=== PATIENT | male | born 1995 | race Caucasian/White ===

== ENCOUNTER 2022-02-17 21:42 | Inpatient (IN) | payer MEDICAID, SELFPAY ==
[2022-02-17 21:56] VITALS: BP 129/85; PULSE 71; RESP 14; TEMP 36.6; O2SAT 99; BMI 23.4
--- NOTE | 2022-02-17 22:25 | PC.NURSE ---
Pt. denies Suicidal or Homicidal ideation. Pt. states that he just wants help with a drinking problem. Pt. was asked by Triage nurse and doctor and clearly denies any suicidal ideation or homicidal ideation.
--- NOTE | 2022-02-17 22:30 | W.ED.GENADLT ---
HPI - General Adult General: Chief complaint: Psychiatric Symptoms Stated complaint: MHE Time Seen by Provider: 02/17/22 21:49 History of Present Illness: HPI: [26]yo patient w/ hx of alcohol dependence requesting alcohol detox. Patient tells me that he wants to quit alcohol. On arrival, the patient is AAOx3 and cooperative with my evaluation. No focal complaints of chest pain, shortness of breath, palpitations, N/V, focal GI/ complaints. Currently denies SI/HI. No complaints of hallucinations. However, per family, patient expressed daily suicidal ideation that has acutely worsened today. Family tells me that patient has access to firearms, is thinking about jumping from cars or hang himself today. Family acutely intervened and told him to come to the emergency room. On further questioning, patient denies all of the above. Onset: acute Duration: ongoing Location: home Severity: severe Associated symptoms: Deny chest pain, dyspnea, nausea, rash, palpitations or vomiting Review of Systems Const: Denies: fever(s) or chills Eyes: Denies: change in vision ENMT: Denies: mouth pain Card: Denies: chest pain or palpitations Resp: Denies: dyspnea or non-productive cough GI: Denies: abdominal pain, nausea, vomiting or diarrhea : Denies: dysuria Musc: Denies: extremity pain Skin/Breast: Denies: rash or new lesions Neuro: Denies: weakness in extremities Psych: Reports: other (Normal mood) Tobias/Lymph: Denies: easy bruising [facility] ED PFSH: Medical History (Updated 02/18/22 @ 11:14 by Donato Clancy MD) Alcohol dependence Social History (Updated 02/17/22 @ 22:31 by Mara De León MD) Smoking and tobacco status: never smoked Alcohol intake: current Substance/Drug Use: never Physical Exam Const: COMMON NORMALS: alert HENMT: COMMON NORMALS: atraumatic HEAD & SCALP: atraumatic MOUTH: moist mucous membranes not abnormal Eye: COMMON NORMALS: EOMs intact bilaterally and conjunctivae normal CONJUNCTIVA: Yes conjunctivae normal Neck/C-Spine: COMMON NORMALS: full ROM and supple Resp: COMMON NORMALS: normal respiratory effort and clear to auscultation bilaterally AUSCULTATION: clear to auscultation bilaterally Cardio: COMMON NORMALS: regular rate RATE: regular rate GI: COMMON NORMALS: Soft to palpation and non-tender PALPATION: Yes Soft to palpation Extremity: COMMON NORMALS: full ROM Neuro: SENSORIUM/ORIENTATION: Yes alert MOTOR EXAM: No Abnormal motor strength present and Other motor observations present (no focal motor deficits) Psych: COMMON NORMALS: speech normal SPEECH: Yes normal speech MOOD & AFFECT: Yes euthymic mood Course Vital Signs: Vital signs: Vital Signs Temperature 99.2 F 02/18/22 14:00 Pulse Rate 89 02/18/22 14:00 Respiratory Rate 17 02/18/22 14:00 Blood Pressure 156/78 02/18/22 14:00 Pulse Oximetry 98 02/18/22 14:00 MDM - General Adult Medical Decision Making [26]yo patient w/ hx of alcohol dependence presenting for requesting detox. Per family, patient has expressed multiple desire to hurt himself including hanging, jumping from traffic or shooting himself. HDS, exam within normal limit Thoughts are linear and organized, and the patient has no AH/VH, HI. Patient's placed under involuntary commitment after patient family filled out multiple involuntary commitment affadvitis. Clinically the patient displays no overt toxidrome; they are well appearing, with low suspicion for toxic ingestion given history and exam. Symptoms unlikely 2/2 anemia, hypothyroidism, infection, or ICH. [11:20pm] On reassessment, patient is hemodynamically stable with no acute medical complaints. Case discussed with psychiatric provider Dr. Clancy at [facility] with recommendation for admission Disposition: admission Lab Data : 02/17/22 22:55 02/17/22 22:55 Laboratory Results WBC 6.7 10^3/uL (4.0-10.0) 02/17/22 22:55 RBC 4.68 10^6/uL (4.1-5.3) 02/17/22 22:55 Hgb 15.4 g/dL (11.7-16.6) 02/17/22 22:55 Hct 45.3 % (42.0-52.0) 02/17/22 22:55 MCV 96.8 fl (80-94) H 02/17/22 22:55 MCH 32.9 pg (28.0-34.0) 02/17/22 22:55 MCHC 34.0 g/dL (30.0-36.0) 02/17/22 22:55 RDW 13.5 % (12.1-15.1) 02/17/22 22:55 Plt Count 318 10^3/cmm (130-400) 02/17/22 22:55 MPV 8.6 fL (7.4-10.4) 02/17/22 22:55 Neut % (Auto) 49.0 % 02/17/22 22: Lymph % (Auto) 36.3 % 02/17/22 22:55 [place] % (Auto) 10.0 % 02/17/22 22:55 Eos % (Auto) 3.1 % 02/17/22: Baso % (Auto) 1.2 % 02/17/22: Neut # (Auto) 3.27 10^3/uL (1.8-7.7) 02/17/22 22: Lymph # (Auto) 2.4 10^3/uL (0.8-4.8) 02/17/22: [place] # (Auto) 0.7 10^3/uL (0.2-0.9) 02/17/22 22:55 Eos # (Auto) 0.2 10^3/uL (0.0-0.8) 02/17/22: Baso # (Auto) 0.1 10^3/uL (0.0-0.1) 02/17/22: Nucleated RBC % (auto) 0 % 02/17/22: Nucleated RBCs # 0.0 /100WBC 02/17/22 22: Sodium 142 mmol/L (136-145) 02/17/22 22:55 Potassium 3.8 mmol/L (3.5-5.1) 02/17/22: Chloride 101 mmol/L (98-107) 02/17/22: Carbon Dioxide 26 mmol/L (22-29) 02/17/22 22:55 Anion Gap 18.8 (5-19) 02/17/22 22:55 BUN 6 mg/dL (6-20) 02/17/22: Creatinine 0.7 mg/dL (0.7-1.2) 02/17/22 22:55 GFR Calculation 137.4 mL/min (90-130) H 02/17/22 22:55 Glucose 79 mg/dL (65-115) 02/17/22 22:55 Calculated Osmolality 291 mOsm/kg (285-295) 02/17/22 22:55 Calcium 8.6 mg/dL (8.5-10.5) 02/17/22 22:55 Total Bilirubin 0.5 mg/dL (0.15-1.2) 02/17/22 22:55 AST 54 U/L (0-40) H 02/17/22 22:55 ALT 49 U/L (0-41) H 02/17/22 22:55 Alkaline Phosphatase 147 IU/L (40-130) H 02/17/22 22:55 Total Protein 7.9 g/dL (6.6-8.7) 02/17/22 22:55 Albumin 5.2 g/dL (3.5-5.2) 02/17/22 22:55 Globulin 2.7 g/dL (1.3-4.6) 02/17/22 22:55 Salicylates < 0.3 mg/dL (3-10) L 02/17/22 22:55 Acetaminophen < 5.0 ug/mL (10-30) L 02/17/22 22:55 Ethyl Alcohol 341 mg/dL (0-10) H* 02/17/22 22:55 Discharge Plan Discharge Patient Disposition: Home Clinical Impression: Alcohol dependence Condition: Stable Discharge Diet: Advance as tolerated Discharge Activity: Increase activity as tolerated Coding Level of Care Code ED Day Ha[employer] Charter Bus Driver for Charis Fwd Exam Comprehensive
--- NOTE | 2022-02-17 23:04 | PC.NURSE ---
Patient was asked again by myself if the patient is suicidal. Patient denies all SI, HI, and hallucinations.
[2022-02-17 23:08] LABS: Basophils # 0.1 10^3/uL (0.0-0.1); Basophils % 1.2 %; Eosinophils # 0.2 10^3/uL (0.0-0.8); Eosinophils % 3.1 %; Hematocrit 45.3 % (42.0-52.0); Hemoglobin 15.4 g/dL (11.7-16.6); Lymphocytes # 2.4 10^3/uL (0.8-4.8); Lymphocytes % 36.3 %; Mean Corpuscular Hemoglobin 32.9 pg (28.0-34.0); Mean Corpuscular Volume 96.8 fl (80-94); Mean Platelet Volume 8.6 fL (7.4-10.4); Monocytes # 0.7 10^3/uL (0.2-0.9); Neutrophils # 3.27 10^3/uL (1.8-7.7); Nucleated Red Blood Cells % 0 %; Platelet Count 318 10^3/cmm (130-400); Red Blood Count 4.68 10^6/uL (4.1-5.3); Red Cell Distribution Width 13.5 % (12.1-15.1); White Blood Count 6.7 10^3/uL (4.0-10.0)
[2022-02-17 23:28] LABS: Alanine Aminotransferase 49 U/L (0-41); Albumin Level 5.2 g/dL (3.5-5.2); Alkaline Phosphatase 147 IU/L (40-130); Anion Gap 18.8 (5-19); Aspartate Amino Transferase 54 U/L (0-40); Blood Urea Nitrogen 6 mg/dL (6-20); Calcium 8.6 mg/dL (8.5-10.5); Carbon Dioxide 26 mmol/L (22-29); Chloride 101 mmol/L (98-107); Globulin 2.7 g/dL (1.3-4.6); Glomerular Filtration Rate 137.4 mL/min (90-130); Glucose 79 mg/dL (65-115); Osmolality Calculated 291 mOsm/kg (285-295); Potassium 3.8 mmol/L (3.5-5.1); Sodium 142 mmol/L (136-145); Total Bilirubin 0.5 mg/dL (0.15-1.2); Total Protein 7.9 g/dL (6.6-8.7)
[2022-02-17 23:29] LABS: Acetaminophen < 5.0 ug/mL (10-30); Salicylate < 0.3 mg/dL (3-10)
[2022-02-17 23:34] LABS: Add Urine Microscopic? NO; Charge for UA Resulting for Rev
[2022-02-17 23:39] VITALS: RESP 16
[2022-02-17 23:41] LABS: Bilirubin Urine Neg (Negative); Blood Urine Neg (Negative); Glucose Urine UA Norm (Normal); Ketones Urine 1+ (Negative); Leukocyte Esterase Urine Negative (Negative); Nitrate Urine Negative (Negative); Protein Urine Neg (Negative); Urine Appearance Clear (CLEAR); Urine Color Yellow (Yellow); Urobilinogen Urine Norm (Negative); pH Urine 5 (5-7)
[2022-02-17 23:52] VITALS: BP 143/88; PULSE 82; RESP 18; TEMP 36.4; O2SAT 97
[2022-02-18] MEDS: nicotine 2 mg Gum BUCCAL ×6 (00:03→16:42)
[2022-02-18 00:38] LABS: Amphetamines Screen Urine Negative (Negative); Barbiturates Screen Urine Negative (Negative); Benzodiazepines Screen Urine Negative (Negative); Cocaine Screen Urine Negative (Negative); Opiate Screen Urine Negative (Negative); PCP Screen Urine Negative (Negative); THC Screen Urine Positive (Negative)
--- NOTE | 2022-02-18 00:42 | PC.ADMIT ---
Admission Note:PI: [26]yo patient w/ hx of alcohol dependence requesting alcohol detox. Patient tells me that he wants to quit alcohol. On arrival, the patient is AAOx3 and cooperative with my evaluation. No focal complaints of chest pain, shortness of breath, palpitations, N/V, focal GI/ complaints. Currently denies SI/HI. No complaints of hallucinations. However, per family, patient expressed daily suicidal ideation that has acutely worsened today. Family tells me that patient has access to firearms, is thinking about jumping from cars or hang himself today. Family acutely intervened and told him to come to the emergency room. On further questioning, patient denies all of the above. Patient came to the ED intoxicated. He was going to be discharged home until his family got involved and said that he endorsed SI. Patient reports he has had suicidal thoughts at times but they never prove to be anything. He has been drinking since he was 20. His father is/was an alcoholic. He states he drinks 4 shots daily now. He holds a job. He has lost 20-25 lbs without trying. He says he is just not hungry. He has seizures. He had a workup and he states they could not determine what was causing them. He ran out of his seizure medicine and doesn't remember what he was taking. His last seizure was 2 weeks ago but he did not go to the hospital even with EMS encouragement. He lives with his uncle Garfield who is his support system. Says that he has ADHD/ADD. He sleeps well at night. He doesn't have detox symptoms that he knows of. The longest he has been sober is a month. The patient,Eleuterio You,26 y/o, was given written information regarding hospital policies, unit procedures and contact persons. Patient's smoking status: never smoked. Vital Signs - 8 hr 02/17/22 21:56 02/17/22 23:39 Temperature 97.8 F Pulse Rate 71 Respiratory Rate 14 16 Blood Pressure 129/85 Pulse Oximetry 99
[2022-02-18 01:00] LABS: Alcohol Level 341 mg/dL (0-10)
[2022-02-18 06:00] VITALS: BP 121/56; PULSE 110; RESP 17; TEMP 36.6; O2SAT 98
[2022-02-18] MEDS: thiamine 100 mg Tablet PO (08:51)
[2022-02-18] MEDS: multivitamin therapeutic Tablet 1 TAB PO (08:51)
[2022-02-18] MEDS: folic acid 1 mg Tablet PO (08:51)
--- NOTE | 2022-02-18 11:05 | P.NPUHP_ITS ---
Providers/Chief Complaint Admitting Physician: Donato Clancy MD Primary Care Provider: Vignesh Ybarra Chief Complaint: MHE HPI NPU History of Present Illness Eleuterio You is a 26 year old male who came into our emergency department with the following report: HPI: [26]yo patient w/ hx of alcohol dependence requesting alcohol detox.? Patient tells me that he wants to quit alcohol.? On arrival, the patient is AAOx3 and cooperative with my evaluation. No focal complaints of chest pain, shortness of breath, palpitations, N/V, focal GI/ complaints. Currently denies SI/HI. No complaints of hallucinations.? However, per family, patient expressed daily suicidal ideation that has acutely worsened today.? Family tells me that patient has access to firearms, is thinking about jumping from cars or hang himself today.? Family acutely intervened and told him to come to the emergency room.? On further questioning, patient denies all of the above. There are 3 affidavits filled out by family members saying that he is a danger to himself. He said that he has threatened to kill himself with a gun or jump in front of cars in traffic. One said that police had been called to prevent him from jumping out into traffic to try to kill himself. He was admitted to the neuropsychiatry unit on a 96-hour hold for definitive treatment of these issues. He says that none of these things in the affidavits happened in the last couple weeks. He said it has been at least 1 month since he has had any suicidal ideation. He says that he has had suicidal thoughts on and off for the last 3 years since his father . His father was an alcoholic and from a heart attack. The patient has been drinking 4-6 shots of whiskey a day since that time. His best friend was shot in front of him in 2017. He denies having nightmares about that. He came to the emergency department saying that he wanted treatment for his alcoholism. He wanted in a treatment program. However now he says that he does not want to go anywhere where he would be in residential treatment. He wants outpatient treatment. He does not have much money and could not afford to pay much. He does not have insurance. He does not believe that he is depressed or anxious. 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 He says that he enjoys it. His energy level and motivation are good. He says that his sleep, appetite and self-esteem are all good. He did have some guilt for not being a good enough son after his father but does not feel that that is present at this time. He does not think that he worries too much about things. His concentration is good. He is not obsessive compulsive about things. He denies mood changes reminiscent of bipolar disorder. He said that his teenage years were good. He played sports and his self-esteem was good. He graduated from high school. PAST PSYCHIATRIC HISTORY As above SOCIAL HISTORY As above Meds NPU Home Medications Medication Instructions Recorded Confirmed Last Taken Type No Known Home Medications 02/18/22 02/18/22 Unknown History Allergies Allergy/AdvReac Type Severity Reaction Status Date / Time No Known Allergies Allergy Verified 02/17/22 21:56 PFS NPU PFSH: Medical History (Updated 02/18/22 @ 11:14 by Donato Clancy MD) Alcohol dependence Social History (Updated 02/17/22 @ 22:31 by Mara De León MD) Smoking and tobacco status: never smoked Alcohol intake: current Substance/Drug Use: never Mental Status Exam MSE Comments: This is a 26-year-old appropriate weight male who appears approximately his stated age and is in no acute distress. He is pleasant and cooperative with the evaluation. His grooming is fairly good in hospital scrubs. psychomotor activity is normal. Speech is at a regular rate and rhythm, normal volume, good articulation, not pressured. Alert, oriented X3 Attention and concentration appears to be normal. Memory is intact Mood is good. Affect is euthymic. Thought process is logical and goal-directed. Thought content: Denies auditory and visual hallucinations. No delusions or paranoia are noted. No current suicidal ideation, and no homicidal ideation. Fund of knowledge is average. Insight and judgment appear to be fair. Impulse control is fair. Vitals/I&O/Wt Last Vital Signs Temp 97.9 F 02/18/22 06:00 Pulse 110 H 02/18/22 06:00 Resp 17 02/18/22 06:00 BP 121/56 02/18/22 06:00 Pulse Ox 98 02/18/22 06:00 Weight last 48 hrs Weight 69.853 kg Data NPU : 02/17/22 22:55 02/17/22 22:55 A&P Assessment and plan (1) Alcohol dependence: Status: Acute (2) Suicidal ideation: Status: Acute Plan This is a 26-year-old male who drinks 4-6 shots of whiskey per day seeking rehabilitation and has reports of suicidal ideation from his family Plan: 1. We will observe only on as needed medications 2. Continue every 15 minute checks for safety. 3. Encourage individual, group and milieu therapies. 4. Encourage sober living treatment after discharge at the highest level of care to which he is willing to commit. 5. We will monitor for safety for himself in the community prior to discharge. Involuntary Hold Information 96 Hour Hold: 96 Hour Involuntary Admission: Yes 96 Hour Hold Ending Date: 02/21/22 96 Hour Hold Ending Time: 23:30 Attestations NPU Medical Necessity Statement*: Inpatient hospitalization is medically necessary and the clinically appropriate intervention at this time. We will initiate medications and make changes as indicated. He will be in the hospital for over 2 midnights. Likely length of stay 4-6 days Coding Level of Care Code Acute Computer Engineering Technologist for Charis Fatima Diagnoses Alcohol dependence F10.20 Suicidal ideation R45.851
[2022-02-18 14:00] VITALS: BP 156/78; PULSE 89; RESP 17; TEMP 37.3; O2SAT 98
[2022-02-18 22:00] VITALS: BP 130/78; PULSE 93; RESP 16; TEMP 36.7; O2SAT 94
[2022-02-19 05:24] VITALS: BP 138/92; PULSE 76; RESP 17; TEMP 36.8; O2SAT 100
[2022-02-19] MEDS: nicotine 2 mg Gum BUCCAL ×3 (07:16→12:15)
[2022-02-19] MEDS: multivitamin therapeutic Tablet 1 TAB PO (08:49)
[2022-02-19] MEDS: folic acid 1 mg Tablet PO (08:49)
[2022-02-19] MEDS: thiamine 100 mg Tablet PO (08:49)
--- NOTE | 2022-02-19 11:35 | W.PM.NPUDCS ---
Diagnoses at Discharge Discharge Diagnosis (1) Alcohol dependence: Status: Acute (2) Suicidal ideation: Status: Acute Reason for Visit Reason for Visit: MHE Brief History: History of Present Illness Eleuterio You is a 26 year old male who came into our emergency department with the following report: HPI: [26]yo patient w/ hx of alcohol dependence requesting alcohol detox.? Patient tells me that he wants to quit alcohol.? On arrival, the patient is AAOx3 and cooperative with my evaluation. No focal complaints of chest pain, shortness of breath, palpitations, N/V, focal GI/ complaints. Currently denies SI/HI. No complaints of hallucinations.? However, per family, patient expressed daily suicidal ideation that has acutely worsened today.? Family tells me that patient has access to firearms, is thinking about jumping from cars or hang himself today.? Family acutely intervened and told him to come to the emergency room.? On further questioning, patient denies all of the above. There are 3 affidavits filled out by family members saying that he is a danger to himself.? He said that he has threatened to kill himself with a gun or jump in front of cars in traffic.? One said that police had been called to prevent him from jumping out into traffic to try to kill himself. He was admitted to the neuropsychiatry unit on a 96-hour hold for definitive treatment of these issues.? He says that none of these things in the affidavits happened in the last couple weeks.? He said it has been at least 1 month since he has had any suicidal ideation.? He says that he has had suicidal thoughts on and off for the last 3 years since his father .? His father was an alcoholic and from a heart attack.? The patient has been drinking 4-6 shots of whiskey a day since that time.? His best friend was shot in front of him in 2017.? He denies having nightmares about that.? He came to the emergency department saying that he wanted treatment for his alcoholism.? He wanted in a treatment program.? However now he says that he does not want to go anywhere where he would be in residential treatment.? He wants outpatient treatment.? He does not have much money and could not afford to pay much.? He does not have insurance.? He does not believe that he is depressed or anxious.? 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 He says that he enjoys it.? His energy level and motivation are good.? He says that his sleep, appetite and self-esteem are all good.? He did have some guilt for not being a good enough son after his father but does not feel that that is present at this time.? He does not think that he worries too much about things.? His concentration is good.? He is not obsessive compulsive about things.? He denies mood changes reminiscent of bipolar disorder.? He said that his teenage years were good.? He played sports and his self-esteem was good.? He graduated from high school. Hospital Course Hospital Course He slowly acclimated to the individual, group and milieu therapies provided. He was not started on medications. He did not take as needed medications. He was able to contract for safety outside hospital prior to discharge. During the hospitalization, patient had routine laboratory studies which were within normal limits except for few outliers. Additionally there was a general medical evaluation which was also within normal limits and revealed no new acute processes. Discharge Summary: At the time of discharge, lethality was denied. Mood and anxiety were well managed. Patient endorsed a plan to follow-up with the aftercare recommendations of the treatment team. Patient was evaluated and deemed to be absent credible lethality, and had achieved the maximum benefit from an inpatient hospitalization, so was discharged. Involuntary Hold Information 96 Hour Hold: 96 Hour Involuntary Admission: Yes 96 Hour Hold Ending Date: 02/21/22 96 Hour Hold Ending Time: 23:30 Mental Status Exam MSE Comments: This is a 26-year-old appropriate weight male who appears approximately his stated age and is in no acute distress. He is pleasant and cooperative with the evaluation. His grooming is fairly good in hospital scrubs. psychomotor activity is normal. Speech is at a regular rate and rhythm, normal volume, good articulation, not pressured. Alert, oriented X3 Attention and concentration appears to be normal. Memory is intact Mood is good. Affect is euthymic. Thought process is logical and goal-directed. Thought content: Denies auditory and visual hallucinations. No delusions or paranoia are noted. No current suicidal ideation, and no homicidal ideation. Fund of knowledge is average. Insight and judgment appear to be fair. Impulse control is fair. Cognition: Patient Appearance: Appropriate Level of Consciousness: Awake, Alert and Appropriate Patient Cognition Impaired: No Ability to Follow Directions: Excellent Patient Orientation (long list): Person, Place, Time and Year Comprehension Ability: No Impairment Hallucination Type: None Delusion Description: Not Present Thought Process: Appropriate Affect: Affect Description: Appropriate Behavior: Patient Behavior: Appropriate Speech Pattern: Appropriate Discharge Data Studies Completed and Pending: Laboratory Results WBC 6.7 10^3/uL (4.0- 10.0) 02/17/22 22:55 RBC 4.68 10^6/uL (4.1 -5.3) 02/17/22 22:55 Hgb 15.4 g/dL (11.7-1 6.6) 02/17/22 22:55 Hct 45.3 % (42.0-52.0 ) 02/17/22 22:55 MCV 96.8 fl (80-94) H 02/17/22 22:55 MCH 32.9 pg (28.0-34. 0) 02/17/22 22:55 MCHC 34.0 g/dL (30.0-3 6.0) 02/17/22 22:55 RDW 13.5 % (12.1-15.1 ) 02/17/22 22:55 Plt Count 318 10^3/cmm (130 -400) 02/17/22 22:55 MPV 8.6 fL (7.4-10.4) 02/17/22 22:55 Neut % (Auto) 49.0 % 02/17/22 22:55 Lymph % (Auto) 36.3 % 02/17/22 22:55 [place] % (Auto) 10.0 % 02/17/22 22:55 Eos % (Auto) 3.1 % 02/17/22 22:55 Baso % (Auto) 1.2 % 02/17/22 22:55 Neut # (Auto) 3.27 10^3/uL (1.8 -7.7) 02/17/22 22:55 Lymph # (Auto) 2.4 10^3/uL (0.8- 4.8) 02/17/22 22:55 [place] # (Auto) 0.7 10^3/uL (0.2- 0.9) 02/17/22 22:55 Eos # (Auto) 0.2 10^3/uL (0.0- 0.8) 02/17/22 22:55 Baso # (Auto) 0.1 10^3/uL (0.0- 0.1) 02/17/22 22:55 Nucleated RBC % (a uto) 0 % 02/17/22: Nucleated RBCs # 0.0 /100WBC 02/17/22 22:55 Sodium 142 mmol/L (136-1 45) 02/17/22 22:55 Potassium 3.8 mmol/L (3.5-5 .1) 02/17/22 22:55 Chloride 101 mmol/L (98-10 7) 02/17/22 22:55 Carbon Dioxide 26 mmol/L (22-29) 02/17/22 22:55 Anion Gap 18.8 (5-19) 02/17/22 22:55 BUN 6 mg/dL (6-20) 02/17/22 22:55 Creatinine 0.7 mg/dL (0.7-1. 2) 02/17/22 22:55 GFR Calculation 137.4 mL/min (90- 130) H 02/17/22 22:55 Glucose 79 mg/dL (65-115) 02/17/22 22:55 Calculated Osmolal ity 291 mOsm/kg (285- 295) 02/17/22 22:55 Calcium 8.6 mg/dL (8.5-10 .5) 02/17/22 22:55 Total Bilirubin 0.5 mg/dL (0.15-1 .2) 02/17/22 22:55 AST 54 U/L (0-40) H 02/17/22 22:55 ALT 49 U/L (0-41) H 02/17/22 22:55 Alkaline Phosphata se 147 IU/L (40-130) H 02/17/22 22:55 Total Protein 7.9 g/dL (6.6-8.7 ) 02/17/22 22:55 Albumin 5.2 g/dL (3.5-5.2 ) 02/17/22 22:55 Globulin 2.7 g/dL (1.3-4.6 ) 02/17/22 22:55 Urine Color Yellow (Yellow) 02/17/22 23:25 Urine Appearance Clear (CLEAR) 02/17/22 23:25 Urine pH 5 (5-7) 02/17/22 23:25 Ur Specific Gravit y 1.020 (1.005-1.0 30) 02/17/22 23:25 Urine Protein Neg (Negative) 02/17/22 23:25 Urine Glucose (UA) Norm (Normal) 02/17/22 23:25 Urine Ketones 1+ (Negative) H 02/17/22 23:25 Urine Blood Neg (Negative) 02/17/22 23:25 Urine Nitrate Negative (Negati ve) 02/17/22 23:25 Urine Bilirubin Neg (Negative) 02/17/22 23:25 Urine Urobilinogen Norm mg/dL (Negat lina) 02/17/22 23:25 Ur Leukocyte Brenda ase Negative (Negati ve) 02/17/22 23:25 Salicylates < 0.3 mg/dL (3-10 ) L 02/17/22 22:55 Urine Opiates Scre en Negative ng/mL (N egative) 02/17/22 23:25 Acetaminophen < 5.0 ug/mL (10-3 0) L 02/17/22 22:55 Ur Barbiturates Sc reen Negative ng/mL (N egative) 02/17/22 23:25 Ur Phencyclidine S crn Negative ng/mL (N egative) 02/17/22 23:25 Ur Amphetamines Sc reen Negative ng/mL (N egative) 02/17/22 23:25 U Benzodiazepines Scrn Negative ng/mL (N egative) 02/17/22 23:25 Urine Cocaine Scre en Negative ng/mL (N egative) 02/17/22 23:25 U Marijuana (THC) Screen Positive ng/mL (N egative) H 02/17/22 23:25 Ethyl Alcohol 341 mg/dL (0-10) H* 02/17/22 22:55 Vitals: Last Vital Signs Temp 98.3 F 02/19/22 05:24 Pulse 76 02/19/22 05:24 Resp 17 02/19/22 05:24 BP 138/92 02/19/22 05:24 Pulse Ox 100 02/19/22 05:24 Discharge Plan Discharge Patient Disposition: Home Condition: Stable Prescriptions: No Action No Known Home Medications 0RF Discharge Orders: Discharge Order (Routine); Ordered 02/19/22 Ordered By: Donato Clancy Referrals: [facility] [Other] (Mondays at 6pm) [facility] [Other] (Wednesdays at 6pm in room [address]100 of the [facility] [place]) [facility] [Outside] Vignesh Ybarra FNP [Primary Care Provider] - Discharge Diet: Regular Discharge Activity: Resume usual activity Patient Instructions: Alcohol Use Disorder (ED), Opioid Safety Activity Restrictions/Additional Instructions: Go to the behavioral health clinic first thing in the morning for alcohol detoxification per request of Dr. Clancy. Please come back to the emergency room if you need help, have any hallucinations, or you have any depression or have thoughts about hurting yourself or other people. Discharge Attestations NPU Time Spent in Discharge Care*: less than 30 min Specific Discharge Activities: Specific discharge activities: educating patient, discussing with block and case maker/social workers/dc planners, documenting/other paperwork and evaluating patient/reviewing data Coding Level of Care Code Acute Chg FW DC note Diagnoses Alcohol dependence F10.20 Suicidal ideation R45.851
[2022-02-19 12:21] VITALS: BP 138/92; PULSE 76; RESP 17; TEMP 36.8; O2SAT 100
--- NOTE | 2022-02-19 12:34 | PC.NURSE ---
Discharge Teaching Discharge teaching completed. No new medications ordered. Reviewed groups to attend to assist with alcohol dependence. Verbalizes understanding. Reviewed appointment times with [facility] and who to call. States he has a card of who to call in the AM. All questions ordered and support voiced.
--- NOTE | 2022-02-19 13:44 | DCPLANNER ---
energy efficient site manager had message to speak with patient about services at [facility]. energy efficient site manager was unable to speak with patient or leave a voicemail for patient.
== END 2022-02-19 13:26 | disposition home or self-care (01) | DRG 897 ==
LOC: ER 22:44 → NP 23:40
PROVIDERS: Admitting Provider Psychiatry & Neurology Psychiatry; Emergency Provider Emergency Medicine; PCP Nurse Practitioner Family; Visit Provider Psychiatry & Neurology Psychiatry
DX: F10.20 Alcohol dependence, uncomplicated (principal); R45.851 Suicidal ideations; Z63.4 Disappearance and death of family member; Y90.8 Blood alcohol level of 240 mg/100 ml or more
CPT/HCPCS: 80053; 80306; 80307; 81003; 85025; 96372; 97150; 97165; 99285; J3411

== ENCOUNTER → 2022-10-27 12:03 | Outpatient (BNVA) | payer BC, SELFPAY | PROVIDERS: PCP Nurse Practitioner Family; Visit Provider Registered Nurse Neonatal Intensive Care | DX: S62.625A Displaced fracture of middle phalanx of left ring finger, initial encounter for closed fracture (principal); X58.XXXA Exposure to other specified factors, initial encounter | CPT/HCPCS: 73130 ==

== ENCOUNTER → 2022-11-11 13:23 | Outpatient (BNVA) | payer BC, MEDICAID, SELFPAY | PROVIDERS: PCP Nurse Practitioner Family; Referring Provider Registered Nurse Neonatal Intensive Care; Visit Provider Nurse Practitioner Family | DX: S62.655A Nondisplaced fracture of middle phalanx of left ring finger, initial encounter for closed fracture (principal); W22.8XXA Striking against or struck by other objects, initial encounter | CPT/HCPCS: 73130; 99214 ==

== ENCOUNTER 2023-10-07 11:05 | Emergency (ER) | payer SELFPAY ==
[2023-10-07] VITALS (7 sets, daily range): BP systolic 126–141; BP diastolic 80–96; PULSE 66–95; RESP 17–21; TEMP 36.6; O2SAT 94–99; BMI 22.1
--- NOTE | 2023-10-07 11:14 | ECG_ITS ---
[facility] Test Date: 2023-10-07 Pat Name: Eleuterio You Department: Room: Gender: Male Route Cdl Driver: : 1995 Requested By: Maryjane Mejia Order Number: [id number] Lorena MD: Tony Beckwith M.D. Measurements Intervals [place] Rate: 76 P: 71 VT: 130 QRS: 74 QRSD: 106 T: 22 QT: 375 QTc: 422 Interpretive Statements SINUS RHYTHM WITH MARKED SINUS ARRHYTHMIA No previous ECG available for comparison Electronically Signed On 10-07-2023 15:29:23 HEATER ROOM HELPER by Tony Beckwith M.D. [id number]
--- NOTE | 2023-10-07 11:42 | XR_ITS ---
WS: [id number] Portable AP upright chest, 10/07/2023 Clinical Data: palpitations Comparison: Portable chest, 01/28/2014 Findings: No nodules, masses or effusions are seen. The heart is normal. The pulmonary vascularity is not increased. No pneumonia or pneumothorax is seen. Monitor leads are on the chest wall. Impression: Negative chest.
[2023-10-07 12:03] LABS: Basophils # 0.1 10^3/uL (0.0-0.1); Basophils % 0.8 %; Eosinophils % 0.3 %; Hematocrit 41.8 % (37-53); Lymphocytes # 1.4 10^3/uL (0.8-4.8); Lymphocytes % 20.5 %; Mean Corpuscular HGB Conc 34.7 g/dL (30-55); Mean Corpuscular Hemoglobin 33.1 pg (27-33); Mean Corpuscular Volume 95.4 fl (82-101); Mean Platelet Volume 8.4 fL (7.4-10.4); Monocytes # 0.6 10^3/uL (0.2-0.9); Monocytes % 8.5 %; Neutrophils # 4.62 10^3/uL (1.8-7.7); Neutrophils % 69.7 %; Nucleated Red Blood Cells % 0 %; Platelet Count 238 10^3/cmm (157-399); Red Blood Count 4.38 10^6/uL (3.85-5.65); Red Cell Distribution Width 14.6 % (12.1-15.1); White Blood Count 6.62 10^3/uL (3.29-11.43)
--- NOTE | 2023-10-07 12:03 | ED_ITS ---
HPI - Arrhythmia/Palpitations 2 General: Chief Complaint: Arrhythmia/Palpitations Stated Complaint: irregular heartbeat,seizures Time Seen by Provider: 10/07/23 11:42 History of Present Illness: 28-year-old male presents emergency depa rtment with complaints of feeling like his heart is irregular and having extra beats. He states that he feels like it is beating extra fast. He denies nausea vomiting dizziness or lightheaded feeling. He states he also has a Possible history of seizures. He states he also feels like his muscles are cramping up. Patient states that he has not been drinking as much fluid as he normally does. He states he has not seen his primary care provider for this concern. Review of Systems 2 General: Reports: 10 or more systems reviewed and unremarkable except in HPI and below Musc: Reports: other (Muscle cramping) PFSH ED 2 PFSH: Medical History Alcohol dependence Social History Smoking and tobacco/nicotine status: never used tobacco/nicotine Alcohol intake: current Substance/Drug Use: never Physical Exam 2 Narrative: EXAM NARRATIVE: Constitutional: the patient appears well nourished and with normal development. Vital signs reviewed as documented. HENMT: Normocephalic, atraumatic. Extermal ears with normal appearance without drainage. Nose without drainage, normal appearance. Mucus membranes moist. Neck is supple, No jugular venous distension, trachea is midline, no appreciable carotid bruits. No lymphadenopathy. No meningeal signs. Flexion, extension and lateral rotation is without pain. Eyes: Pupils are equal, round, reactive to light and accommodation. No scleral icterus. Extra-ocular movement are intact. Thorax is symmetrical and with equal rise and fall with respirations. Resp: Lungs are clear to auscultation. No wheezes, rales, crackles or ronchi at present. Cardio: Regular rate and rhythm. Positive S1, S2. No appreciable murmurs, rubs or gallops. GI: Abdominal exam reveals normal bowel sounds to all quadrants. No organomegaly. No obvious palpable masses noted. No hepatomegally appreciated. Soft, nontender to palpation. Extremity: Extremities are non-edematous and both femoral and pedal pulses are 2+ and equal bilaterally. Moves all extremities well, sensation in all extremities. Neuro: Alert and oriented x4, person, place, time and situation. Cranial nerves II through XII are grossly intact, there is no focal neurological deficits that I can appreciate at present. Motor strength in the upper and lower extremities are equal and bilateral 5/5. Psych: Cooperative, calm, normal thought process, appropriate judgment. Skin: No lesions, rashes. No gross abnormalities noted. Back: Symmetrical, no obvious deformity, No CVA tenderness Course 2 Vital Signs: Vital signs: Vital Signs Temperature 97.9 F 10/07/23 11:15 Pulse Rate 82 10/07/23 13:07 Respiratory Rate 18 10/07/23 13:07 Blood Pressure 134/96 10/07/23 13:07 Pulse Oximetry 99 10/07/23 13:07 Oxygen Delivery Me thod Room Air 10/07/23 13:07 MDM - Arrhythmia/Palpitations Medical Decision Making Physical exam completed and documented, I will obtain a twelve-lead EKG CBC CMP CPK urinalysis and provide IV fluid rehydration. Medical Records I reviewed the patient's medical records. Lab Data I reviewed the patient's lab results. 10/07/23 11:55 10/07/23 11:55 Laboratory Results WBC 6.62 10^3/uL (3.29-11.43) 10/07/23 11:55 RBC 4.38 10^6/uL (3.85-5.65) 10/07/23 11:55 Hgb 14.50 g/dL (11.27-16.99) 10/07/23 11:55 Hct 41.8 % (37-53) 10/07/23 11:55 MCV 95.4 fl (82-101) 10/07/23 11:55 MCH 33.1 pg (27-33) H 10/07/23 11:55 MCHC 34.7 g/dL (30-55) 10/07/23 11:55 RDW 14.6 % (12.1-15.1) 10/07/23 11:55 Plt Count 238 10^3/cmm (157-399) 10/07/23 11:55 MPV 8.4 fL (7.4-10.4) 10/07/23 11:55 Neut % (Auto) 69.7 % 10/07/23 11:55 Lymph % (Auto) 20.5 % 10/07/23 11:55 [place] % (Auto) 8.5 % 10/07/23 11:55 Eos % (Auto) 0.3 % 10/07/23 11:55 Baso % (Auto) 0.8 % 10/07/23 11:55 Neut # (Auto) 4.62 10^3/uL (1.8-7.7) 10/07/23 11:55 Lymph # (Auto) 1.4 10^3/uL (0.8-4.8) 10/07/23 11:55 [place] # (Auto) 0.6 10^3/uL (0.2-0.9) 10/07/23 11:55 Eos # (Auto) 0.0 10^3/uL (0.0-0.8) 10/07/23 11:55 Baso # (Auto) 0.1 10^3/uL (0.0-0.1) 10/07/23 11:55 Nucleated RBC % (auto) 0 % 10/07/23 11:55 Nucleated RBCs # 0.0 /100WBC 10/07/23 11:55 Sodium 137 mmol/L (136-145) 10/07/23 11:55 Potassium 3.3 mmol/L (3.5-5.1) L 10/07/23 11:55 Chloride 95 mmol/L (98-107) L 10/07/23 11:55 Carbon Dioxide 21 mmol/L (22-29) L 10/07/23 11:55 Anion Gap 24.3 (5-19) H 10/07/23 11:55 BUN 7 mg/dL (6-20) 10/07/23 11:55 Creatinine 0.7 mg/dL (0.7-1.2) 10/07/23 11:55 GFR Calculation 135.3 mL/min (90-130) H 10/07/23 11:55 Glucose 155 mg/dL (65-115) H 10/07/23 11:55 Calculated Osmolality 285 mOsm/kg (285-295) 10/07/23 11:55 Calcium 9.7 mg/dL (8.5-10.5) 10/07/23 11:55 Magnesium 1.7 mg/dL (1.7-2.3) 10/07/23 11:55 Total Bilirubin 0.8 mg/dL (0.15-1.2) 10/07/23 11:55 AST 174 U/L (0-40) H 10/07/23 11:55 ALT 123 U/L (0-41) H 10/07/23 11:55 Alkaline Phosphatase 116 U/L (40-130) 10/07/23 11:55 Creatine Kinase 417 U/L (39-308) H* 10/07/23 11:55 Total Protein 8.1 g/dL (6.6-8.7) 10/07/23 11:55 Albumin 5.1 g/dL (3.5-5.2) 10/07/23 11:55 Globulin 3.0 g/dL (1.3-4.6) 10/07/23 11:55 Prolactin 5.51 ng/mL (4.0-15.2) 10/07/23 11:55 Urine Color Yellow (Yellow) 10/07/23 12:33 Urine Appearance Sl hazy (CLEAR) A 10/07/23 12:33 Urine pH 7 (5-7) 10/07/23 12:33 Ur Specific [place] 1.005 (1.005-1.030) 10/07/23 12:33 Urine Protein Trace (Negative) 10/07/23 12:33 Urine Glucose (UA) Norm (Normal) 10/07/23 12:33 Urine Ketones 1+ (Negative) H 10/07/23 12:33 Urine Blood Neg (Negative) 10/07/23 12:33 Urine Nitrate Negative (Negative) 10/07/23 12:33 Urine Bilirubin Neg (Negative) 10/07/23 12:33 Urine Urobilinogen Neg mg/dL (Negative) 10/07/23 12:33 Ur Leukocyte Esterase Negative (Negative) 10/07/23 12:33 Urine RBC 0-4 /hpf (0-2) H 10/07/23 12:33 Urine WBC 0-4 /hpf (0-5) H 10/07/23 12:33 Ur Squamous Epith Cells 0-4 /hpf (0-5) H 10/07/23 12:33 Amorphous Sediment 2+ /hpf 10/07/23 12:33 Urine Bacteria 1+ /hpf (NONE) H 10/07/23 12:33 Urine Mucus 2+ /hpf 10/07/23 12:33 Urine Sperm 1+ /hpf 10/07/23 12:33 Urine Opiates Screen Negative ng/mL (Negative) 10/07/23 12:33 Ur Barbiturates Screen Negative ng/mL (Negative) 10/07/23 12:33 Ur Phencyclidine Scrn Negative ng/mL (Negative) 10/07/23 12:33 Ur Amphetamines Screen Negative ng/mL (Negative) 10/07/23 12:33 U Benzodiazepines Scrn Negative ng/mL (Negative) 10/07/23 12:33 Urine Cocaine Screen Negative ng/mL (Negative) 10/07/23 12:33 U Marijuana (THC) Screen Positive ng/mL (Negative) H 10/07/23 12:33 All radiology interpretation(s) finalized by discharge EKG Data EKG 1: Other EKG comments: Twelve-lead EKG obtained 1114 and reviewed 1116 demonstrates sinus rhythm with sinus arrhythmia, ventricular rate of 76, NV interval 130, QRS duration 106, QT 375, QTc 405. There is no ST elevation or depression to demonstrate acute ischemia or infarction at present. Discharge Plan Discharge Patient Disposition: Home Clinical Impression: Acute dehydration, Acute hypokalemia Condition: Stable Prescriptions: No Action No Known Home Medications Discharge Orders: Discharge ED (Routine); Ordered 10/07/23 Ordered By: Esdras Parr Referrals: Joni Medley DO [Physician] - Vignesh Ybarra FNP [Primary Care Provider] - Discharge Diet: Advance as tolerated Discharge Activity: Resume usual activity Patient Instructions: Opioid Safety, Pain Management Activity Restrictions/Additional Instructions: Activity Restrictions/Additional Instructions: Thank you for choosing [facility] for your healthcare needs today. Please realize that you were seen in the Emergency Department and that we are providing you with an emergency medical screening exam and this may not be a complete and all inclusive of all the testing and or medical work-up that you may need to determine your ailment or severity of your illness. It is very important that you follow-up as instructed with your Primary care provider or Specialist for additional evaluation and to discuss your medical treatment plan. You may return to the Emergency Department should you have concerns or if your condition changes or worsens in any way. Coding Level of Care Code ED Certified Nurse Midwife for Charis Fatima
[2023-10-07 12:26] LABS: Alanine Aminotransferase 123 U/L (0-41); Albumin Level 5.1 g/dL (3.5-5.2); Alkaline Phosphatase 116 U/L (40-130); Anion Gap 24.3 (5-19); Aspartate Amino Transferase 174 U/L (0-40); Blood Urea Nitrogen 7 mg/dL (6-20); Calcium 9.7 mg/dL (8.5-10.5); Carbon Dioxide 21 mmol/L (22-29); Chloride 95 mmol/L (98-107); Creatinine Clr Calc Pharmacy 151.4057; Glomerular Filtration Rate 135.3 mL/min (90-130); Glucose 155 mg/dL (65-115); Magnesium 1.7 mg/dL (1.7-2.3); Osmolality Calculated 285 mOsm/kg (285-295); Potassium 3.3 mmol/L (3.5-5.1); Sodium 137 mmol/L (136-145); Total Bilirubin 0.8 mg/dL (0.15-1.2); Total Protein 8.1 g/dL (6.6-8.7)
[2023-10-07 12:30] LABS: Creatine Phosphokinase 417 U/L (39-308)
[2023-10-07 12:36] LABS: Prolactin 5.51 ng/mL (4.0-15.2)
[2023-10-07] MEDS: lactated ringers 1,000 ML 999 ML IV (12:47)
[2023-10-07 12:59] LABS: Amphetamines Screen Urine Negative (Negative); Barbiturates Screen Urine Negative (Negative); Benzodiazepines Screen Urine Negative (Negative); Cocaine Screen Urine Negative (Negative); Opiate Screen Urine Negative (Negative); PCP Screen Urine Negative (Negative); THC Screen Urine Positive (Negative)
[2023-10-07] MEDS: potassium chloride ER 20 mEq Tablet 40 MEQ PO (13:10)
[2023-10-07 13:31] LABS: Amorphous Sediment Urine 2+ /hpf; Bacteria Urine 1+ /hpf; Bilirubin Urine Neg (Negative); Blood Urine Neg (Negative); Glucose Urine UA Norm (Normal); Ketones Urine 1+ (Negative); Leukocyte Esterase Urine Negative (Negative); Mucus Urine 2+ /hpf; Nitrate Urine Negative (Negative); Protein Urine Trace (Negative); RBC Urine 0-4 /hpf (0-2); Specific Gravity, Urine 1.005 (1.005-1.030); Squamous Epithelial Cell Urine 0-4 /hpf (0-5); Urine Appearance SL Hazy (CLEAR); Urine Color Yellow (Yellow); Urobilinogen Urine Neg (Negative); WBC Urine 0-4 /hpf (0-5); pH Urine 7 (5-7)
[2023-10-07 13:32] LABS: Add Urine Culture? No; Sperm Urine 1+ /hpf
== END 2023-10-07 14:03 | disposition home or self-care (01) ==
PROVIDERS: Emergency Provider Internal Medicine; PCP Nurse Practitioner Family
DX: E87.6 Hypokalemia (principal); E86.0 Dehydration
CPT/HCPCS: 36415; 71045; 80053; 80306; 81001; 82550; 83735; 84146; 85025; 93005; 96360; 99285; J7120

== ENCOUNTER 2023-10-23 11:57 | Emergency (ER) | payer SELFPAY ==
[2023-10-23 12:06] VITALS: BMI 22.8
[2023-10-23 12:09] VITALS: BP 146/94; PULSE 76; RESP 16; TEMP 37.1; O2SAT 99
[2023-10-23 13:14] LABS: Basophils # 0.1 10^3/uL (0.0-0.1); Basophils % 1.3 %; Eosinophils # 0.1 10^3/uL (0.0-0.8); Hematocrit 41.1 % (37-53); Lymphocytes # 1.5 10^3/uL (0.8-4.8); Lymphocytes % 21.5 %; Mean Corpuscular HGB Conc 34.1 g/dL (30-55); Mean Corpuscular Hemoglobin 33.4 pg (27-33); Mean Corpuscular Volume 98.1 fl (82-101); Mean Platelet Volume 8.8 fL (7.4-10.4); Monocytes # 0.8 10^3/uL (0.2-0.9); Monocytes % 11.6 %; Neutrophils # 4.41 10^3/uL (1.8-7.7); Neutrophils % 63.2 %; Nucleated Red Blood Cells % 0 %; Platelet Count 221 10^3/cmm (157-399); Red Blood Count 4.19 10^6/uL (3.85-5.65); Red Cell Distribution Width 14.1 % (12.1-15.1); White Blood Count 6.98 10^3/uL (3.29-11.43)
--- NOTE | 2023-10-23 13:19 | ED_ITS ---
HPI - Seizure 2 General: Chief Complaint: Seizure Stated Complaint: hit head, pt states siezure Time Seen by Provider: 10/23/23 13:19 PFSH ED 2 PFSH: Medical History Alcohol dependence Social History Smoking and tobacco/nicotine status: never used tobacco/nicotine Alcohol intake: current Substance/Drug Use: never Course 2 Vital Signs: Vital signs: Vital Signs Temperature 98.8 F 10/23/23 12:09 Pulse Rate 76 10/23/23 12:09 Respiratory Rate 16 10/23/23 12:09 Blood Pressure 146/94 10/23/23 12:09 Pulse Oximetry 99 10/23/23 12:09 Oxygen Delivery Me thod Room Air 10/23/23 12:09 MDM - Seizure Lab Data 10/23/23 12:53 10/23/23 12:53 Labs: Laboratory Results WBC 6.98 10^3/uL (3.29-11.43) 10/23/23 12:53 RBC 4.19 10^6/uL (3.85-5.65) 10/23/23 12:53 Hgb 14.00 g/dL (11.27-16.99) 10/23/23 12:53 Hct 41.1 % (37-53) 10/23/23 12:53 MCV 98.1 fl (82-101) 10/23/23 12:53 MCH 33.4 pg (27-33) H 10/23/23 12:53 MCHC 34.1 g/dL (30-55) 10/23/23 12:53 RDW 14.1 % (12.1-15.1) 10/23/23 12:53 Plt Count 221 10^3/cmm (157-399) 10/23/23 12:53 MPV 8.8 fL (7.4-10.4) 10/23/23 12:53 Neut % (Auto) 63.2 % 10/23/23 12:53 Lymph % (Auto) 21.5 % 10/23/23 12:53 [place] % (Auto) 11.6 % 10/23/23 12:53 Eos % (Auto) 2.0 % 10/23/23 12:53 Baso % (Auto) 1.3 % 10/23/23 12:53 Neut # (Auto) 4.41 10^3/uL (1.8-7.7) 10/23/23 12:53 Lymph # (Auto) 1.5 10^3/uL (0.8-4.8) 10/23/23 12:53 [place] # (Auto) 0.8 10^3/uL (0.2-0.9) 10/23/23 12:53 Eos # (Auto) 0.1 10^3/uL (0.0-0.8) 10/23/23 12:53 Baso # (Auto) 0.1 10^3/uL (0.0-0.1) 10/23/23 12:53 Nucleated RBC % (auto) 0 % 10/23/23 12:53 Nucleated RBCs # 0.0 /100WBC 10/23/23 12:53 Discharge Plan Discharge Condition: Stable Prescriptions: No Action No Known Home Medications Referrals: Vignesh Ybarra FNP [Primary Care Provider] - Coding Level of Care Code ED Director Of Regional Sales for Charis Fatima
[2023-10-23 13:33] LABS: Alanine Aminotransferase 111 U/L (0-41); Albumin Level 5.1 g/dL (3.5-5.2); Alkaline Phosphatase 107 U/L (40-130); Anion Gap 15.8 (5-19); Aspartate Amino Transferase 126 U/L (0-40); Blood Urea Nitrogen 9 mg/dL (6-20); Calcium 10.1 mg/dL (8.5-10.5); Carbon Dioxide 29 mmol/L (22-29); Chloride 97 mmol/L (98-107); Globulin 2.8 g/dL (1.3-4.6); Glomerular Filtration Rate 135.3 mL/min (90-130); Glucose 87 mg/dL (65-115); Osmolality Calculated 284 mOsm/kg (285-295); Potassium 3.8 mmol/L (3.5-5.1); Sodium 138 mmol/L (136-145); Total Bilirubin 0.9 mg/dL (0.15-1.2); Total Protein 7.9 g/dL (6.6-8.7)
== END 2023-10-23 13:50 | disposition left against medical advice (07) ==
PROVIDERS: Physician Assistant; Emergency Provider Family Medicine; PCP Nurse Practitioner Family
DX: Z53.21 Procedure and treatment not carried out due to patient leaving prior to being seen by health care provider (principal)
CPT/HCPCS: 36415; 80053; 85025

== ENCOUNTER 2023-10-27 18:28 | Emergency (ER) | payer SELFPAY ==
[2023-10-27 18:49] VITALS: BP 126/88; PULSE 105; RESP 14; TEMP 36.6; O2SAT 97; BMI 22.8
--- NOTE | 2023-10-27 19:03 | CTR_ITS ---
PROCEDURE INFORMATION: Exam: CT Head Without Contrast Exam date and time: 10/27/2023 7:21 PM Age: 28 years old Clinical indication: Condition or disease; Convulsions or seizures; Unspecified; Additional info: Seizure TECHNIQUE: Imaging protocol: Computed tomography of the head without contrast. Radiation optimization: All CT scans at this facility use at least one of these dose optimization techniques: automated exposure control; mA and/or kV adjustment per patient size (includes targeted exams where dose is matched to clinical indication); or iterative reconstruction. REPORTING DATA: Count of CT and Cardiac NM exams in prior 12 months: This patient has received 0 known CTs and 0 known cardiac nuclear medicine studies in the 12 months prior to the current study. COMPARISON: No relevant prior studies available. RADIATION DOSE METRICS: Total DLP (mGy-cm): 1100 FINDINGS: Brain: No midline shift. Ventricles, cisterns, and sulci are normal. No mass, acute infarct, hemorrhage, or extraaxial fluid collection. Cerebral ventricles: No ventriculomegaly. Paranasal sinuses: Visualized sinuses are unremarkable. No fluid levels. Mastoid air cells: Visualized mastoid air cells are well aerated. Bones/joints: Unremarkable. No acute fracture. Soft tissues: Unremarkable. CT/CT head wo con* [id number] IMPRESSION: No acute intracranial abnormality.
--- NOTE | 2023-10-27 19:03 | W.ED.SEIZURE ---
HPI - Seizure General: Chief Complaint: Seizure Stated Complaint: seizures, bruising all over body Time Seen by Provider: 10/27/23 18:54 Source: patient Mode of arrival: ambulatory Limitations: no limitations History of Present Illness: HPI Narrative: 28-year-old male states that history of seizures he states he had seizure over the last 6 years states has never seen anyone for is not on any meds. States he had increased frequency lately. He is awake and alert denies any headache denies any fever denies any vomiting or diarrhea. Associated symptoms: Deny chest pain, chills or fever(s) Review of Systems Const: Denies: fever(s), chills, body aches or change in appetite Eyes: Denies: blurry vision or eye discomfort ENMT: Denies: throat pain or dental pain Card: Denies: chest pain Resp: Denies: dyspnea GI: Denies: abdominal pain, nausea, vomiting or diarrhea Musc: Denies: neck pain or back pain Skin/Breast: Denies: rash Neuro: Reports: seizure-like activity; Denies: headache(s) PFSH ED PFSH: Medical History Alcohol dependence Social History Smoking and tobacco/nicotine status: never used tobacco/nicotine Alcohol intake: current Substance/Drug Use: never Physical Exam Const: COMMON NORMALS: no acute distress, patient oriented x3 and healthy appearing HENMT: COMMON NORMALS: normocephalic and atraumatic HEAD & SCALP: normocephalic and atraumatic Eye: COMMON NORMALS: Equal, round and reactive pupils present and EOMs intact bilaterally PUPIL: Yes Equal, round and reactive pupils present Neck/C-Spine: COMMON NORMALS: full ROM and supple Chest: COMMONS NORMALS: normal inspection of the chest Resp: COMMON NORMALS: normal respiratory effort Cardio: COMMON NORMALS: regular rate, regular rhythm and No murmurs present (Cardio) RATE: regular rate RHYTHM: regular rhythm GI: INSPECTION: Yes normal to inspection Extremity: COMMON NORMALS: normal to inspection and full ROM Neuro: COMMON NORMALS: patient oriented x3, moves all extremities and no focal motor deficits Psych: COMMON NORMALS: mental status grossly normal, Normal thought process present and cooperative THOUGHT PROCESS: Normal thought process present Skin: COMMON NORMALS: no rashes or lesions noted and no wounds GENERAL SKIN EXAM: no rashes or lesions noted Course Vital Signs: Vital signs: Vital Signs Temperature 98 F 10/27/23 18:49 Pulse Rate 105 H 10/27/23 18:49 Respiratory Rate 14 10/27/23 18:49 Blood Pressure 126/88 10/27/23 18:49 Pulse Oximetry 97 10/27/23 18:49 MDM - Seizure MDM Narrative Medical decision making narrative: Patient presents here with history of seizures head CT electrolytes here are normal we will start him on Keppra and getting follow-up with neurology he is well-appearing here and stable for discharge return if worsening. Medical Records Attestation: I reviewed the patient's medical records. Lab Data Attestation: I reviewed the patient's lab results. 10/27/23 19:06 Labs: Radiology Impressions Head CT 10/27/23 19:03 IMPRESSION: No acute intracranial abnormality. Laboratory Results Sodium 142 mmol/L (136-145) 10/27/23 19:06 Potassium 4.0 mmol/L (3.5-5.1) 10/27/23 19:06 Chloride 102 mmol/L (98-107) 10/27/23 19:06 Carbon Dioxide 24 mmol/L (22-29) 10/27/23 19:06 Anion Gap 20.0 (5-19) H 10/27/23 19:06 BUN 10 mg/dL (6-20) 10/27/23 19:06 Creatinine 0.7 mg/dL (0.7-1.2) 10/27/23 19:06 GFR Calculation 135.3 mL/min (90-130) H 10/27/23 19:06 Glucose 99 mg/dL (65-115) 10/27/23 19:06 Calculated Osmolality 293 mOsm/kg (285-295) 10/27/23 19:06 Calcium 9.0 mg/dL (8.5-10.5) 10/27/23 19:06 All radiology interpretation(s) finalized by discharge Discharge Plan Discharge Patient Disposition: Home Clinical Impression: Generalized seizure Condition: Stable Prescriptions: New Keppra 500 mg tablet 500 mg PO Q12H Qty: 60 0RF Discharge Orders: Discharge ED (Routine); Ordered 10/27/23 Ordered By: Maryjane Mejia Referrals: Ankur Browning MD [Physician] - 1-3 days Vignesh Ybarra FNP [Primary Care Provider] - Discharge Diet: Advance as tolerated Discharge Activity: Resume usual activity Patient Instructions: Generalized Tonic Clonic Seizures (ED) Coding Level of Care Code ED Pile Driver Operator Helper for Charis Fatima
[2023-10-27] MEDS: levETIRAcetam 1,000 MG/100 ML PREMIX 400 MG IV (19:11)
[2023-10-27 19:31] LABS: Blood Urea Nitrogen 10 mg/dL (6-20); Carbon Dioxide 24 mmol/L (22-29); Chloride 102 mmol/L (98-107); Glomerular Filtration Rate 135.3 mL/min (90-130); Glucose 99 mg/dL (65-115); Osmolality Calculated 293 mOsm/kg (285-295); Sodium 142 mmol/L (136-145)
--- NOTE | 2023-10-28 07:20 | DCPLANNER ---
Message sent to Neuro for a follow with Dr. Browning- Seizures-
== END 2023-10-27 20:18 | disposition home or self-care (01) ==
PROVIDERS: Emergency Provider Emergency Medicine; PCP Nurse Practitioner Family
DX: G40.409 Other generalized epilepsy and epileptic syndromes, not intractable, without status epilepticus (principal)
CPT/HCPCS: 70450; 80048; 96374; 99285; J1953

== ENCOUNTER 2024-02-10 15:53 | Emergency (ER) | payer SELFPAY ==
[2024-02-10 15:55] VITALS: BP 151/89; PULSE 113; RESP 15; TEMP 36.9; O2SAT 100; BMI 23.6
--- NOTE | 2024-02-10 15:57 | W.ED.SEIZURE ---
HPI - Seizure General: Chief Complaint: Seizure Stated Complaint: Seizures Time Seen by Provider: 02/10/24 15:57 History of Present Illness: HPI Narrative: 28-year-old male patient comes in today for seizure episode. Female significant other states that patient's had 4 seizures today. Patient is a daily alcohol user. Patient states he drinks alcohol to help control his seizures. Patient last visit to the ER was in October at that time he was started on Keppra which seem to be helpful for his seizures. Patient had taken his 1 month supply but did not get in for follow-up with primary care or neurology. Patient reports no other pain or discomfort. Female significant other reports that she noticed some significant bruising to the elbow from a prior seizure 2 days ago. Patient endorses nicotine and alcohol use. Patient denies marijuana or methamphetamine use. Seizure History: Yes Review of Systems General: Reports: 10 or more systems reviewed and unremarkable except in HPI and below Neuro: Reports: seizure-like activity PFSH ED PFSH: Medical History Alcohol dependence Social History Smoking and tobacco/nicotine status: never used tobacco/nicotine Alcohol intake: current Substance/Drug Use: never Physical Exam Const: COMMON NORMALS: alert HENMT: COMMON NORMALS: normocephalic HEAD & SCALP: normocephalic MOUTH: moist mucous membranes abnormal (Lower lip and tongue abrasion) Neck/C-Spine: COMMON NORMALS: full ROM Resp: COMMON NORMALS: normal respiratory effort Cardio: COMMON NORMALS: regular rate RATE: regular rate GI: COMMON NORMALS: Soft to palpation and non-tender PALPATION: Yes Soft to palpation Back/Pelvis: COMMON NORMALS: thoracic and lumbar spine normal to inspection Extremity: COMMON NORMALS: full ROM RIGHT UPPER EXTREMITY: Yes hand & digits (Abrasion right hand) Neuro: SENSORIUM/ORIENTATION: Yes alert Skin: TRAUMA: abrasion (Right hand abrasion) Course Vital Signs: Vital signs: Vital Signs Temperature 98.5 F 02/10/24 15:55 Pulse Rate 90 02/10/24 16:58 Respiratory Rate 18 02/10/24 16:58 Blood Pressure 149/100 02/10/24 16:58 Pulse Oximetry 100 02/10/24 15:55 Oxygen Delivery Me thod Room Air 02/10/24 15:55 MDM - Seizure Lab Data 02/10/24 16:04 02/10/24 16:04 Labs: Radiology Impressions Head CT 02/10/24 16:01 IMPRESSION: No acute intracranial abnormality. Elbow X-Ray 02/10/24 16:02 IMPRESSION: No acute findings. Laboratory Results WBC 13.26 10^3/uL (3.29-11.43) H 02/10/24 16:04 RBC 4.31 10^6/uL (3.85-5.65) 02/10/24 16:04 Hgb 14.80 g/dL (11.27-16.99) 02/10/24 16:04 Hct 43.0 % (37-53) 02/10/24 16:04 MCV 99.8 fl (82-101) 02/10/24 16:04 MCH 34.3 pg (27-33) H 02/10/24 16:04 MCHC 34.4 g/dL (30-55) 02/10/24 16:04 RDW 12.8 % (12.1-15.1) 02/10/24 16:04 Plt Count 285 10^3/cmm (157-399) 02/10/24 16:04 MPV 9.1 fL (7.4-10.4) 02/10/24 16:04 Neut % (Auto) 71.1 % 02/10/24 16:04 Lymph % (Auto) 15.2 % 02/10/24 16:04 [place] % (Auto) 12.4 % 02/10/24 16:04 Eos % (Auto) 0.2 % 02/10/24 16:04 Baso % (Auto) 0.6 % 02/10/24 16:04 Neut # (Auto) 9.42 10^3/uL (1.8-7.7) H 02/10/24 16:04 Lymph # (Auto) 2.0 10^3/uL (0.8-4.8) 02/10/24 16:04 [place] # (Auto) 1.7 10^3/uL (0.2-0.9) H 02/10/24 16:04 Eos # (Auto) 0.0 10^3/uL (0.0-0.8) 02/10/24 16:04 Baso # (Auto) 0.1 10^3/uL (0.0-0.1) 02/10/24 16:04 Nucleated RBC % (auto) 0 % 02/10/24 16:04 Nucleated RBCs # 0.0 /100WBC 02/10/24 16:04 Sodium 130 mmol/L (136-145) L 02/10/24 16:04 Potassium 3.4 mmol/L (3.5-5.1) L 02/10/24 16:04 Chloride 89 mmol/L (98-107) L 02/10/24 16:04 Carbon Dioxide 15 mmol/L (22-29) L 02/10/24 16:04 Anion Gap 29.4 (5-19) H 02/10/24 16:04 BUN 7 mg/dL (6-20) 02/10/24 16:04 Creatinine 1.1 mg/dL (0.7-1.2) 02/10/24 16:04 GFR Calculation 80.3 mL/min (90-130) L 02/10/24 16:04 Glucose 129 mg/dL (65-115) H 02/10/24 16:04 Calculated Osmolality 270 mOsm/kg (285-295) L 02/10/24 16:04 Calcium 9.5 mg/dL (8.5-10.5) 02/10/24 16:04 Total Bilirubin 1.3 mg/dL (0.15-1.2) H 02/10/24 16:04 AST 126 U/L (0-40) H 02/10/24 16:04 ALT 76 U/L (0-41) H 02/10/24 16:04 Alkaline Phosphatase 131 U/L (40-130) H 02/10/24 16:04 Total Protein 8.0 g/dL (6.6-8.7) 02/10/24 16:04 Albumin 4.8 g/dL (3.5-5.2) 02/10/24 16:04 Globulin 3.2 g/dL (1.3-4.6) 02/10/24 16:04 All radiology interpretation(s) finalized by discharge ED provider radiology interpretation(s): 28-year-old male patient comes in today with seizure episode. Patient has a known history of seizures. Patient has not been taking any medications for seizures. Patient had been prescribed Keppra from the emergency room back in October but ran out and did not get any further refills. Over the past 3 to 4 days patient is at increased number of seizures. Patient does drink alcohol daily. Patient appears nontoxic. Respirations are even lungs are clear to auscultation. No palpable tenderness. Patient does have some bruising to the posterior elbow. Differential diagnosis includes not limited to epileptic seizure, substance use disorder, alcohol intoxication, intracranial bleeding. CBC noted some mild leukocytosis with a white count of 13,000. CMP had a sodium 130, potassium 3.4, anion gap 29, creatinine 1.1, bilirubin 1.3. CT of the head shows no intracranial bleeding or acute abnormality. Believe patient probably has some dehydration with alcohol intoxication and a probable epileptic seizure. Patient was given a gram of Keppra and will be kept on Keppra 500 mg twice a day. Case management was requested for patient to follow-up with neurology and appointment to be made. Patient reports understanding and agreed to plan. Discharge Plan Discharge Patient Disposition: Home Clinical Impression: Epileptic seizure, Alcohol dependence, Dehydration Condition: Stable Prescriptions: Continued Keppra 500 mg tablet 500 mg PO Q12H Qty: 60 2RF Discharge Orders: Discharge ED (Routine); Ordered 02/10/24 Ordered By: Dhiraj Platt Referrals: Vignesh Ybarra FNP [Primary Care Provider] - Discharge Diet: Usual diet Discharge Activity: Increase activity as tolerated Patient Instructions: Epilepsy (ED) Activity Restrictions/Additional Instructions: You should not drive until seizures are under control for at least 2 years, or as recommended by neurologist. information systems security manager will contact you regarding follow-up with neurology. Take Keppra 500 mg twice a day. Return to ED for new concerns. Coding Level of Care Code ED Crew Chief for Charis Fatima
--- NOTE | 2024-02-10 16:01 | CTR_ITS ---
PROCEDURE INFORMATION: Exam: CT Head Without Contrast Exam date and time: 02/10/2024 4:27 PM Age: 28 years old Clinical indication: Condition or disease; Convulsions or seizures; Additional info: Seizure TECHNIQUE: Imaging protocol: Computed tomography of the head without contrast. Radiation optimization: All CT scans at this facility use at least one of these dose optimization techniques: automated exposure control; mA and/or kV adjustment per patient size (includes targeted exams where dose is matched to clinical indication); or iterative reconstruction. COMPARISON: CT head wo con* [id number] 10/27/2023 7:21 PM RADIATION DOSE METRICS: Total DLP (mGy-cm): 1086.87 FINDINGS: Brain: Normal. No hemorrhage. Unremarkable white matter. No mass effect. Cerebral ventricles: No ventriculomegaly. Paranasal sinuses: Visualized sinuses are unremarkable. No fluid levels. Mastoid air cells: Visualized mastoid air cells are well aerated. Bones/joints: Unremarkable. No acute fracture. Soft tissues: Unremarkable. CT/CT head wo con* [id number] IMPRESSION: No acute intracranial abnormality.
--- NOTE | 2024-02-10 16:02 | XRR_ITS ---
PROCEDURE INFORMATION: Exam: XR Left Elbow Exam date and time: 02/10/2024 4:06 PM Age: 28 years old Clinical indication: Injury or trauma; Blunt trauma (contusions or hematomas); Elbow; Left; Injury details: Seizure fall TECHNIQUE: Imaging protocol: Radiologic exam of the left elbow. Views: 3 or more views. COMPARISON: CR XR hand LT min 3V* [id number] 10/27/2022 12:16 PM FINDINGS: Bones/joints: Normal. Soft tissues: Normal. XR/XR elbow LT min 3V* [id number] IMPRESSION: No acute findings.
[2024-02-10] MEDS: levETIRAcetam 1,000 MG/100 ML PREMIX 400 MG IV (16:10)
[2024-02-10 16:16] LABS: Basophils # 0.1 10^3/uL (0.0-0.1); Basophils % 0.6 %; Eosinophils % 0.2 %; Lymphocytes % 15.2 %; Mean Corpuscular HGB Conc 34.4 g/dL (30-55); Mean Corpuscular Hemoglobin 34.3 pg (27-33); Mean Corpuscular Volume 99.8 fl (82-101); Mean Platelet Volume 9.1 fL (7.4-10.4); Monocytes # 1.7 10^3/uL (0.2-0.9); Monocytes % 12.4 %; Neutrophils # 9.42 10^3/uL (1.8-7.7); Neutrophils % 71.1 %; Nucleated Red Blood Cells % 0 %; Platelet Count 285 10^3/cmm (157-399); Red Blood Count 4.31 10^6/uL (3.85-5.65); Red Cell Distribution Width 12.8 % (12.1-15.1); White Blood Count 13.26 10^3/uL (3.29-11.43)
[2024-02-10 16:38] LABS: Alanine Aminotransferase 76 U/L (0-41); Albumin Level 4.8 g/dL (3.5-5.2); Alkaline Phosphatase 131 U/L (40-130); Anion Gap 29.4 (5-19); Aspartate Amino Transferase 126 U/L (0-40); Blood Urea Nitrogen 7 mg/dL (6-20); Calcium 9.5 mg/dL (8.5-10.5); Carbon Dioxide 15 mmol/L (22-29); Chloride 89 mmol/L (98-107); Creatinine Clr Calc Pharmacy 98.6792; Globulin 3.2 g/dL (1.3-4.6); Glomerular Filtration Rate 80.3 mL/min (90-130); Glucose 129 mg/dL (65-115); Osmolality Calculated 270 mOsm/kg (285-295); Potassium 3.4 mmol/L (3.5-5.1); Sodium 130 mmol/L (136-145); Total Bilirubin 1.3 mg/dL (0.15-1.2)
[2024-02-10 16:58] VITALS: BP 149/100; PULSE 90; RESP 18
[2024-02-10] MEDS: sodium chloride 0.9% 1,000 ML 999 ML IV (16:58)
--- NOTE | 2024-02-11 23:45 | DCPLANNER ---
Message sent to neurology for follow up on recurrent seizures
== END 2024-02-10 18:05 | disposition home or self-care (01) ==
PROVIDERS: Emergency Provider Nurse Practitioner Family; PCP Nurse Practitioner Family
DX: G40.909 Epilepsy, unspecified, not intractable, without status epilepticus (principal); F10.20 Alcohol dependence, uncomplicated; E86.0 Dehydration; S60.511A Abrasion of right hand, initial encounter; Z72.0 Tobacco use; X58.XXXA Exposure to other specified factors, initial encounter
CPT/HCPCS: 70450; 73080; 80053; 85025; 96365; 99285; J1953; J7030

== ENCOUNTER 2024-06-01 16:24 | Emergency (ER) | payer SELFPAY ==
[2024-06-01 16:29] VITALS: BP 148/101; PULSE 123; RESP 18; TEMP 36.7; O2SAT 96
--- NOTE | 2024-06-01 16:48 | ED_ITS ---
HPI - General Adult 2 General: Chief complaint: General Medical Stated complaint: MHE Time Seen by Provider: 06/01/24 16:48 History of Present Illness: 29-year-old male patient comes in today for concerns of wanting to be detox from alcohol. Patient is seeing Dr. Robertson who has prescribed him some Keppra and another medication to help him come off his alcohol. Patient does report prior seizures. Patient appears nontoxic. Review of Systems 2 General: Reports: 10 or more systems reviewed and unremarkable except in HPI and below PFSH ED 2 PFSH: Medical History Alcohol dependence Social History Smoking and tobacco/nicotine status: never used tobacco/nicotine Alcohol intake: current Substance/Drug Use: never Physical Exam 2 Const: COMMON NORMALS: alert HENMT: COMMON NORMALS: normocephalic HEAD & SCALP: normocephalic Neck/C-Spine: COMMON NORMALS: no meningeal signs Resp: COMMON NORMALS: normal respiratory effort Cardio: COMMON NORMALS: regular rate RATE: regular rate Back/Pelvis: COMMON NORMALS: thoracic and lumbar spine normal to inspection Extremity: COMMON NORMALS: no pedal edema Neuro: SENSORIUM/ORIENTATION: Yes alert MENINGEAL SIGNS: Yes no meningeal signs Skin: COMMON NORMALS: turgor normal GENERAL SKIN EXAM: turgor normal Course 2 Vital Signs: Vital signs: Vital Signs Temperature 98.1 F 06/01/24 16:29 Pulse Rate 123 H 06/01/24 16:29 Respiratory Rate 18 06/01/24 16:29 Blood Pressure 148/101 06/01/24 16:29 Pulse Oximetry 96 06/01/24 16:29 Oxygen Delivery Me thod Room Air 06/01/24 16:29 [facility] - General Adult Medical Decision Making 29-year-old male patient comes in today for wanting to stop alcohol consumption. Patient has a history of seizures and is concerned for seizure disorder. Patient has not had any seizures. Patient appears nontoxic. Patient reports his last drink was 8:00 this morning. On exam vital signs are normal. Differential diagnosis includes but not limited to alcohol dependence, substance use disorder, major depressive disorder, alcohol withdrawal. CBC was unremarkable. CMP noted glucose 125 and potassium 3.4. Salicylate and acetaminophen was unremarkable. Patient's EtOH level was 435. Patient was also positive for THC. Patient was alert and oriented responding appropriate to questions. Patient has seen a primary care provider that started him on Keppra and diazepam to help with his alcohol cessation. I will also add naltrexone to help with alcohol cravings. Recommend continuing medications as directed by his primary care provider to follow-up with his primary care in 3 to 5 days. After the 5 days of alcohol free patient may seek further treatment with [facility] at [phone]. This is an outpatient/inpatient treatment center for alcohol and substance use disorder. Lab Data 06/01/24 16:58 06/01/24 16:58 Laboratory Results WBC 4.44 10^3/uL (3.29-11.43) 06/01/24 16:58 RBC 3.95 10^6/uL (3.85-5.65) 06/01/24 16:58 Hgb 14.20 g/dL (11.27-16.99) 06/01/24 16:58 Hct 40.2 % (37-53) 06/01/24 16:58 MCV 101.8 fl (82-101) H 06/01/24 16:58 MCH 35.9 pg (27-33) H 06/01/24 16:58 MCHC 35.3 g/dL (30-55) 06/01/24 16:58 RDW 13.3 % (12.1-15.1) 06/01/24 16:58 Plt Count 132 10^3/cmm (157-399) L 06/01/24 16:58 MPV 9.0 fL (7.4-10.4) 06/01/24 16:58 Neut % (Auto) 48.1 % 06/01/24 16:58 Lymph % (Auto) 34.5 % 06/01/24 16:58 [place] % (Auto) 14.4 % 06/01/24 16:58 Eos % (Auto) 1.4 % 06/01/24 16:58 Baso % (Auto) 1.4 % 06/01/24 16:58 Neut # (Auto) 2.14 10^3/uL (1.8-7.7) 06/01/24 16:58 Lymph # (Auto) 1.5 10^3/uL (0.8-4.8) 06/01/24 16:58 [place] # (Auto) 0.6 10^3/uL (0.2-0.9) 06/01/24 16:58 Eos # (Auto) 0.1 10^3/uL (0.0-0.8) 06/01/24 16:58 Baso # (Auto) 0.1 10^3/uL (0.0-0.1) 06/01/24 16:58 Nucleated RBC % (auto) 0 % 06/01/24 16:58 Nucleated RBCs # 0.0 /100WBC 06/01/24 16:58 PT 14.50 SECONDS (12.1-14.9) 06/01/24 16:58 INR 1.09 (0.8-1.2) 06/01/24 16:58 Sodium 137 mmol/L (136-145) 06/01/24 16:58 Potassium 3.4 mmol/L (3.5-5.1) L 06/01/24 16:58 Chloride 96 mmol/L (98-107) L 06/01/24 16:58 Carbon Dioxide 26 mmol/L (22-29) 06/01/24 16:58 Anion Gap 18.4 (5-19) 06/01/24 16:58 BUN 4 mg/dL (6-20) L 06/01/24 16:58 Creatinine 0.8 mg/dL (0.7-1.2) 06/01/24 16:58 GFR Calculation 115.1 mL/min (90-130) 06/01/24 16:58 Glucose 125 mg/dL (65-115) H 06/01/24 16:58 Calculated Osmolality 282 mOsm/kg (285-295) L 06/01/24 16:58 Calcium 8.9 mg/dL (8.5-10.5) 06/01/24 16:58 Total Bilirubin 1.1 mg/dL (0.15-1.2) 06/01/24 16:58 AST 392 U/L (0-40) H 06/01/24 16:58 ALT 178 U/L (0-41) H 06/01/24 16:58 Alkaline Phosphatase 183 U/L (40-130) H 06/01/24 16:58 Total Protein 7.6 g/dL (6.6-8.7) 06/01/24 16:58 Albumin 4.5 g/dL (3.5-5.2) 06/01/24 16:58 Globulin 3.1 g/dL (1.3-4.6) 06/01/24 16:58 TSH 2.03 uIU/mL (0.27-4.20) 06/01/24 16:58 Urine Color [place] (Yellow) A 06/01/24 17:28 Urine Appearance Clear (CLEAR) 06/01/24 17:28 Urine pH 6.5 (5-7) 06/01/24 17:28 Ur Specific [place] 1.012 (1.005-1.030) 06/01/24 17:28 Urine Protein 2+ (Negative) A 06/01/24 17:28 Urine Glucose (UA) Negative (Normal) 06/01/24 17:28 Urine Ketones Negative (Negative) 06/01/24 17:28 Urine Blood Negative (Negative) 06/01/24 17:28 Urine Nitrate Negative (Negative) 06/01/24 17:28 Urine Bilirubin Negative (Negative) 06/01/24 17:28 Urine Urobilinogen 1.0 mg/dL (Negative) 06/01/24 17:28 Ur Leukocyte Esterase Negative (Negative) 06/01/24 17:28 Urine RBC 0-2 /hpf (0-2) 06/01/24 17:28 Urine WBC 0-5 /hpf (0-5) 06/01/24 17:28 Ur Squamous Epith Cells 0-5 /hpf (0-5) 06/01/24 17:28 Amorphous Sediment Not Reportable 06/01/24 17:28 Urine Bacteria None seen /hpf (NONE) 06/01/24 17:28 Hyaline Casts 0-4 /lpf H 06/01/24 17:28 Salicylates < 0.3 mg/dL (3-10) L 06/01/24 16:58 Urine Opiates Screen Negative ng/mL (Negative) 06/01/24 17:28 Acetaminophen < 5.0 ug/mL (10-30) L 06/01/24 16:58 Ur Barbiturates Screen Negative ng/mL (Negative) 06/01/24 17:28 Ur Phencyclidine Scrn Negative ng/mL (Negative) 06/01/24 17:28 Ur Amphetamines Screen Negative ng/mL (Negative) 06/01/24 17:28 U Benzodiazepines Scrn Negative ng/mL (Negative) 06/01/24 17:28 Urine Cocaine Screen Negative ng/mL (Negative) 06/01/24 17:28 U Marijuana (THC) Screen Positive ng/mL (Negative) H 06/01/24 17:28 Ethyl Alcohol 435 mg/dL (0-10) H* 06/01/24 16:58 No radiology studies performed this visit Discharge Plan Discharge Patient Disposition: Home Clinical Impression: Alcohol dependence Qualifiers: Substance use status: unspecified alcohol-induced disorder Qualified Code(s): F 10.29 - Alcohol dependence with unspecified alcohol-induced disorder Condition: Stable Prescriptions: New naltrexone 50 mg tablet 50 mg PO DAILY Qty: 14 0RF No Action Keppra 500 mg tablet 500 mg PO Q12H Qty: 60 2RF Discharge Orders: Discharge ED (Routine); Ordered 06/01/24 Ordered By: Dhiraj Platt Referrals: Vignesh Ybarra FNP [Primary Care Provider] - Discharge Diet: Usual diet Discharge Activity: Increase activity as tolerated Patient Instructions: Alcohol Dependence (ED) Activity Restrictions/Additional Instructions: Take naltrexone and Keppra routinely to help with alcohol withdrawal and cessation. Naltrexone will help prevent cravings. Keppra is to help prevent seizures. Use diazepam as needed for anxiety and shaking with the withdrawals. Follow-up with primary care for further instructions. Return to ED for any concerns or worsening symptoms such as seizures. Coding Level of Care Code ED Business Liaison Manager for Charis Fatima
[2024-06-01 17:21] LABS: Basophils # 0.1 10^3/uL (0.0-0.1); Basophils % 1.4 %; Eosinophils # 0.1 10^3/uL (0.0-0.8); Eosinophils % 1.4 %; Hematocrit 40.2 % (37-53); Lymphocytes # 1.5 10^3/uL (0.8-4.8); Lymphocytes % 34.5 %; Mean Corpuscular HGB Conc 35.3 g/dL (30-55); Mean Corpuscular Hemoglobin 35.9 pg (27-33); Mean Corpuscular Volume 101.8 fl (82-101); Monocytes # 0.6 10^3/uL (0.2-0.9); Monocytes % 14.4 %; Neutrophils # 2.14 10^3/uL (1.8-7.7); Neutrophils % 48.1 %; Nucleated Red Blood Cells % 0 %; Platelet Count 132 10^3/cmm (157-399); Red Blood Count 3.95 10^6/uL (3.85-5.65); Red Cell Distribution Width 13.3 % (12.1-15.1); White Blood Count 4.44 10^3/uL (3.29-11.43)
[2024-06-01 17:45] LABS: Charge for UA Resulting for Rev
[2024-06-01 17:51] LABS: INR 1.09 (0.8-1.2)
[2024-06-01 17:54] LABS: Alanine Aminotransferase 178 U/L (0-41); Albumin Level 4.5 g/dL (3.5-5.2); Alkaline Phosphatase 183 U/L (40-130); Anion Gap 18.4 (5-19); Aspartate Amino Transferase 392 U/L (0-40); Blood Urea Nitrogen 4 mg/dL (6-20); Calcium 8.9 mg/dL (8.5-10.5); Carbon Dioxide 26 mmol/L (22-29); Chloride 96 mmol/L (98-107); Creatinine Clr Calc Pharmacy 138.3636; Globulin 3.1 g/dL (1.3-4.6); Glomerular Filtration Rate 115.1 mL/min (90-130); Glucose 125 mg/dL (65-115); Osmolality Calculated 282 mOsm/kg (285-295); Potassium 3.4 mmol/L (3.5-5.1); Sodium 137 mmol/L (136-145); Thyroid Stimulating Hormone 2.03 uIU/mL (0.27-4.20); Total Bilirubin 1.1 mg/dL (0.15-1.2); Total Protein 7.6 g/dL (6.6-8.7)
[2024-06-01 17:55] LABS: Acetaminophen < 5.0 ug/mL (10-30); Salicylate < 0.3 mg/dL (3-10)
[2024-06-01 17:56] LABS: Alcohol Level 435 mg/dL (0-10)
[2024-06-01 18:00] LABS: Bilirubin Urine Negative (Negative); Blood Urine Negative (Negative); Glucose Urine UA Negative (Normal); Ketones Urine Negative (Negative); Leukocyte Esterase Urine Negative (Negative); Nitrate Urine Negative (Negative); Protein Urine 2+ (Negative); Specific Gravity, Urine 1.012 (1.005-1.030); Urine Appearance Clear (CLEAR); pH Urine 6.5 (5-7)
[2024-06-01 18:06] LABS: Amphetamines Screen Urine Negative (Negative); Bacteria Urine None Seen /hpf; Barbiturates Screen Urine Negative (Negative); Benzodiazepines Screen Urine Negative (Negative); Cocaine Screen Urine Negative (Negative); Hyaline Casts Urine 0-4 /lpf; Opiate Screen Urine Negative (Negative); PCP Screen Urine Negative (Negative); RBC Urine 0-2 /hpf (0-2); Squamous Epithelial Cell Urine 0-5 /hpf (0-5); THC Screen Urine Positive (Negative); WBC Urine 0-5 /hpf (0-5)
[2024-06-01 18:14] LABS: Urine Color Orange (Yellow)
== END 2024-06-01 18:29 | disposition home or self-care (01) ==
PROVIDERS: Emergency Provider Nurse Practitioner Family; PCP Nurse Practitioner Family
DX: F10.20 Alcohol dependence, uncomplicated (principal); Y90.8 Blood alcohol level of 240 mg/100 ml or more
CPT/HCPCS: 80053; 80306; 80307; 81003; 81015; 84443; 85025; 85610; 99283

== ENCOUNTER 2024-09-18 16:37 | Emergency (ER) | payer MEDICAID, SELFPAY ==
[2024-09-18 16:53] VITALS: BP 124/84; PULSE 118; RESP 16; TEMP 36.6; O2SAT 99
[2024-09-18 17:30] VITALS: BP 123/89; PULSE 93; RESP 16; O2SAT 94
[2024-09-18 17:47] LABS: Basophils # 0.1 10^3/uL (0.0-0.1); Basophils % 0.8 %; Eosinophils # 0.1 10^3/uL (0.0-0.8); Eosinophils % 0.7 %; Hematocrit 38.2 % (37-53); Lymphocytes # 3.6 10^3/uL (0.8-4.8); Lymphocytes % 26.4 %; Mean Corpuscular HGB Conc 35.6 g/dL (30-55); Mean Corpuscular Hemoglobin 37.1 pg (27-33); Mean Corpuscular Volume 104.1 fl (82-101); Mean Platelet Volume 8.7 fL (7.4-10.4); Monocytes # 1.3 10^3/uL (0.2-0.9); Monocytes % 9.6 %; Neutrophils # 8.51 10^3/uL (1.8-7.7); Nucleated Red Blood Cells % 0 %; Platelet Count 396 10^3/cmm (157-399); Red Blood Count 3.67 10^6/uL (3.85-5.65); Red Cell Distribution Width 14.2 % (12.1-15.1); White Blood Count 13.73 10^3/uL (3.29-11.43)
[2024-09-18 18:03] LABS: Alanine Aminotransferase 309 U/L (0-41); Albumin Level 4.4 g/dL (3.5-5.2); Alkaline Phosphatase 349 U/L (40-130); Aspartate Amino Transferase 421 U/L (0-40); Blood Urea Nitrogen 3 mg/dL (6-20); Carbon Dioxide 29 mmol/L (22-29); Chloride 92 mmol/L (98-107); Creatinine Clr Calc Pharmacy 163.7751; Globulin 3.8 g/dL (1.3-4.6); Glomerular Filtration Rate 134.3 mL/min (90-130); Glucose 118 mg/dL (65-115); Lipase 30 U/L (13-60); Osmolality Calculated 280 mOsm/kg (285-295); Sodium 136 mmol/L (136-145); Total Bilirubin 2.8 mg/dL (0.15-1.2); Total Protein 8.2 g/dL (6.6-8.7)
[2024-09-18] MEDS: sodium chloride 0.9% 1,000 ML 999 ML IV (18:03)
--- NOTE | 2024-09-18 18:22 | W.ED.WEAKNES ---
HPI - Weakness General: Chief complaint: Weakness Stated complaint: weakness Time Seen by Provider: 09/18/24 17:04 History of Present Illness: This patient is a 29-year-old white male who presents to the emergency department complaining of some tingling in the thighs bilaterally. This has been going on for the past 2 to 3 days. Patient states he is an alcoholic. He has been through detox but is drinking again. Has had 2 shots today. Review of Systems General: Reports: 10 or more systems reviewed and unremarkable except in HPI and below Neuro: Reports: numbness in extremities (Numbness and tingling in the thighs) [facility] ED PFSH: Medical History Alcohol dependence Social History Smoking and tobacco/nicotine status: never used tobacco/nicotine Alcohol intake: current Substance/Drug Use: never Physical Exam Const: COMMON NORMALS: no acute distress, patient oriented x3 and no limitations GENERAL APPEARANCE: cooperative and comfortable HENMT: COMMON NORMALS: normocephalic, atraumatic, Normal nasal mucous membranes and turbinates present, moist oral mucous membranes and oropharynx normal HEAD & SCALP: normal to inspection, normocephalic and atraumatic FACE & SINUS: normal facial exam NOSE: Normal nasal mucous membranes and turbinates present Eye: COMMON NORMALS: Equal, round and reactive pupils present, EOMs intact bilaterally and conjunctivae normal GENERAL EYE: appearance normal, both eyes and all related structures CONJUNCTIVA: Yes conjunctivae normal PUPIL: Yes Equal, round and reactive pupils present Neck/C-Spine: COMMON NORMALS: supple and no JVD Chest: COMMONS NORMALS: normal inspection of the chest Resp: COMMON NORMALS: normal respiratory effort and clear to auscultation bilaterally AUSCULTATION: clear to auscultation bilaterally Cardio: COMMON NORMALS: no JVD, regular rate, regular rhythm, No gallops present (Cardio), No murmurs present (Cardio) and No rub (Cardio) RATE: regular rate RHYTHM: regular rhythm GI: COMMON NORMALS: Normal to inspection, nondistended, normoactive bowel sounds present, Soft to palpation and non-tender AUSCULTATION: Yes normoactive bowel sounds PALPATION: Yes Soft to palpation : COMMON NORMALS: Yes no CVA tenderness BLADDER/KIDNEY EXAM: Yes no CVA tenderness Back/Pelvis: COMMON NORMALS: no CVA tenderness and thoracic and lumbar spine normal to inspection Extremity: COMMON NORMALS: normal to inspection Neuro: COMMON NORMALS: patient oriented x3 and CN's II-XII intact bilaterally Psych: COMMON NORMALS: mental status grossly normal, Normal thought process present and cooperative THOUGHT PROCESS: Normal thought process present Skin: COMMON NORMALS: no rashes or lesions noted, turgor normal and no jaundice GENERAL SKIN EXAM: no rashes or lesions noted and turgor normal Course Vital Signs: Vital signs: Vital Signs Temperature 97.8 F 09/18/24 16:53 Pulse Rate 93 09/18/24 17:30 Respiratory Rate 16 09/18/24 17:30 Blood Pressure 123/89 09/18/24 17:30 Pulse Oximetry 94 09/18/24 17:30 Oxygen Delivery Me thod Room Air 09/18/24 17:30 MDM - Weakness Medical Decision Making CBC revealed white blood cell count of 13.7. CMP revealed a total bili of 2.8, AST 421, ALT 309, alk phos 349 and a potassium of 3.0. Patient's liver function tests are progressively increasing. I discussed this with him. I strongly encouraged him to stop drinking we will end up with cirrhosis at an early age. I will treat his hypokalemia with 20 mill equivalents of K-Dur per day for 14 days. He was discharged in stable condition instructed to follow-up with his primary care physician soon as possible for ongoing management. Lab Data 09/18/24 17:42 09/18/24 17:42 Laboratory Results WBC 13.73 10^3/uL (3.29-11.43) H 09/18/24 17:42 RBC 3.67 10^6/uL (3.85-5.65) L 09/18/24 17:42 Hgb 13.60 g/dL (11.27-16.99) 09/18/24 17:42 Hct 38.2 % (37-53) 09/18/24 17:42 MCV 104.1 fl (82-101) H 09/18/24 17:42 MCH 37.1 pg (27-33) H 09/18/24 17:42 MCHC 35.6 g/dL (30-55) 09/18/24 17:42 RDW 14.2 % (12.1-15.1) 09/18/24 17:42 Plt Count 396 10^3/cmm (157-399) 09/18/24 17:42 MPV 8.7 fL (7.4-10.4) 09/18/24 17:42 Neut % (Auto) 62.0 % 09/18/24 17:42 Lymph % (Auto) 26.4 % 09/18/24 17:42 [place] % (Auto) 9.6 % 09/18/24 17:42 Eos % (Auto) 0.7 % 09/18/24 17:42 Baso % (Auto) 0.8 % 09/18/24 17: Neut # (Auto) 8.51 10^3/uL (1.8-7.7) H 09/18/24 17:42 Lymph # (Auto) 3.6 10^3/uL (0.8-4.8) 09/18/24 17:42 [place] # (Auto) 1.3 10^3/uL (0.2-0.9) H 09/18/24 17:42 Eos # (Auto) 0.1 10^3/uL (0.0-0.8) 09/18/24 17:42 Baso # (Auto) 0.1 10^3/uL (0.0-0.1) 09/18/24 17:42 Nucleated RBC % (auto) 0 % 09/18/24 17:42 Nucleated RBCs # 0.0 /100WBC 09/18/24 17:42 Sodium 136 mmol/L (136-145) 09/18/24 17:42 Potassium 3.0 mmol/L (3.5-5.1) L 09/18/24 17:42 Chloride 92 mmol/L (98-107) L 09/18/24 17:42 Carbon Dioxide 29 mmol/L (22-29) 09/18/24 17:42 Anion Gap 18.0 (5-19) 09/18/24 17:42 BUN 3 mg/dL (6-20) L 09/18/24 17:42 Creatinine 0.7 mg/dL (0.7-1.2) 09/18/24 17:42 GFR Calculation 134.3 mL/min (90-130) H 09/18/24 17:42 Glucose 118 mg/dL (65-115) H 09/18/24 17:42 Calculated Osmolality 280 mOsm/kg (285-295) L 09/18/24 17:42 Calcium 10.0 mg/dL (8.5-10.5) 09/18/24 17:42 Total Bilirubin 2.8 mg/dL (0.15-1.2) H 09/18/24 17:42 AST 421 U/L (0-40) H 09/18/24 17:42 ALT 309 U/L (0-41) H 09/18/24 17:42 Alkaline Phosphatase 349 U/L (40-130) H 09/18/24 17:42 Total Protein 8.2 g/dL (6.6-8.7) 09/18/24 17:42 Albumin 4.4 g/dL (3.5-5.2) 09/18/24 17:42 Globulin 3.8 g/dL (1.3-4.6) 09/18/24 17:42 Lipase 30 U/L (13-60) 09/18/24 17:42 No radiology studies performed this visit Discharge Plan Discharge Patient Disposition: Home Clinical Impression: Hypokalemia Alcohol dependence Qualifiers: Substance use status: unspecified alcohol-induced disorder Qualified Code(s): F10.29 - Alcohol dependence with unspecified alcohol-induced disorder Condition: Stable Prescriptions: New potassium chloride 20 mEq tablet,ER particles/crystals 20 meq PO DAILY Qty: 14 0RF No Action Keppra 500 mg tablet 500 mg PO Q12H Qty: 60 2RF naltrexone 50 mg tablet 50 mg PO DAILY Qty: 14 0RF Discharge Orders: Discharge ED (Routine); Ordered 09/18/24 Ordered By: Christiano Padilla Referrals: Eleuterio Ybarra FNP [Primary Care Provider] - Patient Instructions: Alcoholism Activity Restrictions/Additional Instructions: Follow-up with your primary care provider soon as possible for ongoing management of your alcoholism and hypokalemia. Coding Level of Care Code ED Software Tools Build Engineer for Chg Fwd Related Data Previous Rx's Medication Instructions Recorded levetiracetam 500 mg tablet 500 mg PO Q12H #60 tabs 02/10/24 (Keppra) naltrexone 50 mg tablet 50 mg PO DAILY #14 tabs 07/31/24 potassium chloride 20 mEq 20 meq PO DAILY #14 tabs 09/18/24 tablet,extended release(part/cryst) Allergies Allergy/AdvReac Type Severity Reaction Status Date / Time No Known Allergies Allergy Verified 09/18/24 17:00
[2024-09-18 19:02] VITALS: BP 123/85; PULSE 96; RESP 16; O2SAT 100
== END 2024-09-18 18:53 | disposition home or self-care (01) ==
PROVIDERS: Emergency Provider Emergency Medicine; PCP Nurse Practitioner Family
DX: E87.6 Hypokalemia (principal); F10.29 Alcohol dependence with unspecified alcohol-induced disorder
CPT/HCPCS: 80053; 83690; 85025; 99283; J7030

== ENCOUNTER 2024-09-21 11:39 | Emergency (ER) | payer MEDICAID, SELFPAY ==
[2024-09-21 11:44] VITALS: BP 109/80; PULSE 108; RESP 18; TEMP 36.7; O2SAT 100
[2024-09-21 12:55] LABS: Basophils # 0.1 10^3/uL (0.0-0.1); Basophils % 0.7 %; Eosinophils # 0.2 10^3/uL (0.0-0.8); Eosinophils % 1.6 %; Hematocrit 36.7 % (37-53); Lymphocytes # 1.9 10^3/uL (0.8-4.8); Lymphocytes % 18.2 %; Mean Corpuscular HGB Conc 34.1 g/dL (30-55); Mean Corpuscular Hemoglobin 36.8 pg (27-33); Mean Corpuscular Volume 107.9 fl (82-101); Monocytes # 0.8 10^3/uL (0.2-0.9); Monocytes % 7.9 %; Neutrophils # 7.42 10^3/uL (1.8-7.7); Nucleated Red Blood Cells % 0 %; Platelet Count 315 10^3/cmm (157-399); White Blood Count 10.45 10^3/uL (3.29-11.43)
--- NOTE | 2024-09-21 13:00 | ED_ITS ---
HPI - Extremity Problem 2 General: Chief complaint: Extremity Injury, Lower Stated complaint: back pain (dr. wilkinson for a scan) Time Seen by Provider: 09/21/24 12:48 History of Present Illness: 29-year-old male presents to the emergen cy room with complaints of bilateral lower extremity numbness. He has had this in the past states its much more severe now. He did ambulate here today. No trauma to the back no previous back surgeries is not particularly having back pain or pain into his extremities. He has not had any loss of bowel or bladder control. Patient is a very heavy drinker previously transaminases alk phos and T. bili have all been markedly elevated he has a macrocytosis on his CBC. Associated symptoms: Deny chest pain, fever(s) or rash Related Data Previous Rx's Medication Instructions Recorded levetiracetam 500 mg tablet 500 mg PO Q12H #60 tabs 02/10/24 (Keppra) naltrexone 50 mg tablet 50 mg PO DAILY #14 tabs 06/01/24 potassium chloride 20 mEq 20 meq PO DAILY #14 tabs 09/18/24 tablet,extended release(part/cryst) Allergies Allergy/AdvReac Type Severity Reaction Status Date / Time No Known Allergies Allergy Verified 09/18/24 17:00 Review of Systems 2 Const: Denies: fever(s) or chills Card: Denies: chest pain Resp: Denies: dyspnea GI: Denies: abdominal pain : Denies: dysuria, urinary frequency or urinary urgency Musc: Denies: neck pain or back pain Skin/Breast: Denies: rash PFSH ED 2 PFSH: Medical History Alcohol dependence Social History Smoking and tobacco/nicotine status: never used tobacco/nicotine Alcohol intake: current Substance/Drug Use: never Physical Exam 2 Const: COMMON NORMALS: no acute distress GENERAL APPEARANCE: cooperative and comfortable ORIENTATION/CONSCIOUSNESS: Yes awake, Yes oriented to person, Yes oriented to place and Yes oriented to time HENMT: COMMON NORMALS: normocephalic, atraumatic and hearing grossly normal bilaterally HEAD & SCALP: normocephalic and atraumatic Resp: COMMON NORMALS: normal respiratory effort, No retractions, No use of accessory muscles and clear to auscultation bilaterally AUSCULTATION: clear to auscultation bilaterally Cardio: COMMON NORMALS: regular rate, regular rhythm and No murmurs present (Cardio) RATE: regular rate RHYTHM: regular rhythm GI: COMMON NORMALS: Soft to palpation and No hepatosplenomegaly present A USCULTATION: Yes normoactive bowel sounds PALPATION: Yes Soft to palpation, No Tenderness to palpation present (GI), No Guarding due to palpation present (GI) and Yes No hepatosplenomegaly present Extremity: COMMON NORMALS: normal to inspection, capillary refill normal, no clubbing, cyanosis or edema, no calf tenderness and no pedal edema OTHER: Sensation present lower extremities bilaterally deep tendon reflexes +1/4 patellar tendon dorsum plantarflexion active 5-5 hip flexor strength 5 of 5 extension at the knees 5 out of 5 all bilateral Neuro: SENSORIUM/ORIENTATION: Yes oriented to person, Yes oriented to place and Yes oriented to time Skin: COMMON NORMALS: no rashes or lesions noted GENERAL SKIN EXAM: no rashes or lesions noted Course 2 Vital Signs: Vital signs: Vital Signs Temperature 98.1 F 09/21/24 11:44 Pulse Rate 108 H 09/21/24 11:44 Respiratory Rate 18 09/21/24 11:44 Blood Pressure 109/80 09/21/24 11:44 Pulse Oximetry 100 09/21/24 11:44 Oxygen Delivery Me thod Room Air 09/21/24 11:44 MDM - Extremity (Nontraumatic) Medical Decision Making Suspect the symptoms are caused by alcoholic peripheral neuropathy. No recent trauma. Discussed with Dr. Garcia who reviewed the CT he does not feel that there is need for emergent MRI at this point. Recommended patient follow-up with neurology. Suspect he will need further outpatient workup. Medical Records I reviewed the patient's medical records. Lab Data I reviewed the patient's lab results. 09/21/24 12:47 Radiology Impressions Lumbar Spine CT 09/21/24 13:11 IMPRESSION: 1. Mild LEFT foraminal narrowing L3-4 with a tiny LEFT foraminal protrusion. 2. Eccentric disc bulge L4-5 with mild bilateral foraminal narrowing. 3. Tiny shallow central protrusion L5-S1. Mild RIGHT greater than LEFT foraminal narrowing at this level Laboratory Results WBC 10.45 10^3/uL (3.29-11.43) 09/21/24 12:47 RBC 3.40 10^6/uL (3.85-5.65) L 09/21/24 12:47 Hgb 12.50 g/dL (11.27-16.99) 09/21/24 12:47 Hct 36.7 % (37-53) L 09/21/24 12:47 MCV 107.9 fl (82-101) H 09/21/24 12:47 MCH 36.8 pg (27-33) H 09/21/24 12:47 MCHC 34.1 g/dL (30-55) 09/21/24 12:47 RDW 14.0 % (12.1-15.1) 09/21/24 12:47 Plt Count 315 10^3/cmm (157-399) 09/21/24 12:47 MPV 9.0 fL (7.4-10.4) 09/21/24 12:47 Neut % (Auto) 71.0 % 09/21/24 12:47 Lymph % (Auto) 18.2 % 09/21/24 12:47 [place] % (Auto) 7.9 % 09/21/24 12:47 Eos % (Auto) 1.6 % 09/21/24 12:47 Baso % (Auto) 0.7 % 09/21/24 12:47 Neut # (Auto) 7.42 10^3/uL (1.8-7.7) 09/21/24 12:47 Lymph # (Auto) 1.9 10^3/uL (0.8-4.8) 09/21/24 12:47 [place] # (Auto) 0.8 10^3/uL (0.2-0.9) 09/21/24 12:47 Eos # (Auto) 0.2 10^3/uL (0.0-0.8) 09/21/24 12:47 Baso # (Auto) 0.1 10^3/uL (0.0-0.1) 09/21/24 12:47 Nucleated RBC % (auto) 0 % 09/21/24 12:47 Nucleated RBCs # 0.0 /100WBC 09/21/24 12:47 ESR 3 mm/hr (0-10) 09/21/24 12:47 PT 15.10 SECONDS (12.1-14.9) H 09/21/24 12:47 INR 1.15 (0.8-1.2) 09/21/24 12:47 APTT 28.9 SECONDS (23.9-36.7) 09/21/24 12:47 C-Reactive Protein 6.8 mg/L (0.0-4.9) H 09/21/24 12:47 All radiology interpretation(s) finalized by discharge Discharge Plan Discharge Patient Disposition: Home Clinical Impression: Bilateral leg numbness, Alcoholic peripheral neuropathy Alcohol dependence Qualifiers: Substance use status: unspecified alcohol-induced disorder Qualified Code(s): F 10.29 - Alcohol dependence with unspecified alcohol-induced disorder Condition: Stable Prescriptions: No Action Keppra 500 mg tablet 500 mg PO Q12H Qty: 60 2RF naltrexone 50 mg tablet 50 mg PO DAILY Qty: 14 0RF potassium chloride 20 mEq tablet,ER particles/crystals 20 meq PO DAILY Qty: 14 0RF Discharge Orders: Discharge ED (Routine); Ordered 09/21/24 Ordered By: Freddie Robertson Referrals: Eleuterio Ybarra FNP [Primary Care Provider] - Discharge Diet: Usual diet Discharge Activity: Increase activity as tolerated Patient Instructions: Opioid Safety, Pain Management Activity Restrictions/Additional Instructions: Thank you for choosing [facility] for your healthcare needs today. It is very important that you follow up as instructed or that you return to the Emergency Department should you have concerns or if your condition changes or worsens in any way. You are seen today for numbness in your extremities. CT of your lumbar spine did not show any signs of significant stenosis. Suspect this may related to history of alcohol use. Refrain from drinking alcohol. Will have you follow-up with neurology for further evaluation. Coding Level of Care Code ED Novelty Maker for Charis Fatima
--- NOTE | 2024-09-21 13:11 | CT_ITS ---
WS: [id number] CT LUMBAR SPINE TECHNIQUE: Noncontrast CT of the lumbar spine with coronal and sagittal reformatted images. CLINICAL INFORMATION: radiculopathy COMPARISON: None. DLP: 512.[address] scans at [facility] use at least one of these dose optimization techniques: automated e xposure control; mA and/or kV adjustment per patient size (includes targeted exams where dose is matc hed to clinical indication); or iterative reconstruction. FINDINGS: Mild lumbar curve. No acute compression. No high-grade central canal stenosis. Mild annular bulging L 4-L5 and L5-S1. L1-L2: Normal. L2-L3: Normal. L3-L4: Mild annular bulging. Mild LEFT foraminal narrowing with a tiny LEFT foraminal protrusion. L4-L5: Mild annular bulging. Eccentric disc bulging with mild bilateral foraminal narrowing. Slight e ncroachment on the exiting L4 nerve roots bilaterally. L5-S1: Mild annular bulging with a tiny shallow central protrusion. Slight effacement of the ventral thecal sac. Spinal canal is patent. Mild RIGHT greater than LEFT foraminal narrowing. Visualized pelvic bony structures: Normal. Paravertebral soft tissues: Normal. Diffuse fatty infiltration of the liver partially visualized. Adrenal glands are normal. Tiny LEFT ad renal nodule likely adenoma measuring [address]/CT lumbar spine wo con* [id number] IMPRESSION: 1. Mild LEFT foraminal narrowing L3-4 with a tiny LEFT foraminal protrusion. 2. Eccentric disc bulge L4-5 with mild bilateral foraminal narrowing. 3. Tiny shallow central protrusion L5-S1. Mild RIGHT greater than LEFT foramin al narrowing at this level
[2024-09-21 13:17] LABS: C Reactive Protein 6.8 mg/L (0.0-4.9)
[2024-09-21 13:29] LABS: Erythrocyte Sedimentation Rate 3 mm/hr (0-10)
[2024-09-21 13:32] LABS: INR 1.15 (0.8-1.2)
[2024-09-21 13:33] LABS: Partial Thromboplastin Time 28.9 SECONDS (23.9-36.7)
== END 2024-09-21 14:59 | disposition home or self-care (01) ==
PROVIDERS: Emergency Medicine; Emergency Provider Family Medicine; PCP Nurse Practitioner Family
DX: R20.0 Anesthesia of skin (principal); G62.1 Alcoholic polyneuropathy; F10.288 Alcohol dependence with other alcohol-induced disorder
CPT/HCPCS: 36415; 72131; 85025; 85610; 85651; 85730; 86140; 99284

== ENCOUNTER → 2024-10-05 09:12 | Outpatient (BNVA) | payer MEDICAID, SELFPAY | PROVIDERS: PCP Nurse Practitioner Family; Visit Provider Surgery | DX: K21.9 Gastro-esophageal reflux disease without esophagitis (principal) | CPT/HCPCS: 36415; 80048 ==

== ENCOUNTER 2024-10-11 08:12 | Day surgery (SDC) | payer MEDICAID, SELFPAY ==
--- NOTE | 2024-10-11 08:28 | P.HPUD_ITS ---
Surgery/Procedure H&P Update DATE OF PROCEDURE: October 11, 2024 DATE H&P PERFORMED: 10/05/24 H&P UPDATE INFORMATION: I have reviewed H&P completed within last 30 days, I have examined patient prior to procedure, No changes to prior documentation and H&P is in [facility] EMR on date indicated PLANNED PROCEDURE: Operation Date: 10/11/24 09:25 Proposed Procedures p EGD - 57266, k21.9(Not Applicable) - Richard Vee MD
[2024-10-11 08:35] VITALS: BP 135/88; PULSE 113; RESP 17; TEMP 36.8; O2SAT 99; BMI 22.3
--- NOTE | 2024-10-11 08:43 | P.ANESASSM_ITS ---
Pre-Anesthetic Assessment Height/Weight: Height 1.73 m Preop Diagnosis: screening Operation Date: 10/11/24 09:25 Proposed Procedures p EGD - 81653, k21.9(Not Applicable) - Richard Vee MD Familial anesthetic complications: none Was Beta Javi taken within 24 hours: N/A Was Clonidine taken within 24 hours: N/A Social Tobacco and No alcohol 1/2 PPD pack(s) per day Exam alert, oriented x 3, clear to auscultation bilaterally and regular rate & rhythm Airway Submandibular: within normal limits Cervical ROM: within normal limits Mallampati: Class II Dentition: full Comments: Comments: teeth chipped History/ROS No significant history except as noted and No significant complaints Pulmonary None reported CV/HEM None reported None reported Hepatic None reported GI None reported Metabolic None reported Musc/skel Weakness arm/leg numbness of uncertain origin Neuropsych Seizure Anesthetic Plan ASA status: 3 Anesthesia: MAC Risk of > 500 ml blood loss (7ml/kg in children): No Medications/Allergies Home Medications Medication Instructions Recorded Confirmed Last Taken Type levetiracetam 500 mg tablet 500 mg PO Q12H #60 tabs 02/10/24 10/11/24 10/11/24 Rx (Keppra) naltrexone 50 mg tablet 50 mg PO DAILY #14 tabs 06/01/24 10/07/24 10/07/24 Rx potassium chloride 20 mEq 20 meq PO DAILY #14 tabs 09/18/24 10/11/24 10/10/24 Rx tablet,extended release(part/cryst) Allergies Allergy/AdvReac Type Severity Reaction Status Date / Time No Known Allergies Allergy Verified 10/07/24 08:16 [facility] Anesthesia Medical History Alcohol dependence Family History (Updated 10/05/24 @ 08:29 by REFUGIO Lyn) Mother Diabetes Multiple sclerosis Social History (Updated 10/05/24 @ 08:29 by REFUGIO Lyn) Smoking and tobacco/nicotine status: current every day tobacco/nicotine user cigarettes Alcohol intake: former Former alcohol use details: 10 days ago Substance/Drug Use: never Data Anesthesia Cardiac Studies: 2 No Data to Display
[2024-10-11 10:18] VITALS: BP 109/75; PULSE 122; RESP 18; TEMP 36.8; O2SAT 96
[2024-10-11 10:49] VITALS: BP 121/92; PULSE 110; RESP 16; O2SAT 98
--- NOTE | 2024-10-11 11:10 | ANE.PACU2 ---
Inpatient post-anesthesia follow up: Airway intact: Yes Vital signs: Temperature 98.3 F Pulse Rate 110 Respiratory Rate 16 Blood Pressure 121/92 Pulse Oximetry 98 Oxygen Delivery Me thod Room Air Oxygen Flow Rate Fraction of Inspir ed Oxygen Hydration adequate: Yes Nausea and vomiting: No Pain level: 1 Mental status: Baseline
== END 2024-10-11 11:10 | disposition home or self-care (01) ==
PROVIDERS: PCP Nurse Practitioner Family; Visit Provider Surgery
PROC: 0DJ08ZZ Inspection of Upper Intestinal Tract, Via Natural or Artificial Opening Endoscopic (ICD-10-PCS; CPT 43235; principal; 2024-10-11 09:25)
DX: K21.00 Gastro-esophageal reflux disease with esophagitis, without bleeding (principal); K44.9 Diaphragmatic hernia without obstruction or gangrene; K29.80 Duodenitis without bleeding; K29.70 Gastritis, unspecified, without bleeding; F17.210 Nicotine dependence, cigarettes, uncomplicated
CPT/HCPCS: 43239; 88305; J2704

== ENCOUNTER 2024-10-14 12:42 | Outpatient (CLI) | payer MEDICAID, SELFPAY ==
--- NOTE | 2024-10-14 12:47 | MR_ITS ---
WS: [id number] MRI LUMBAR SPINE NONCONTRAST TECHNIQUE: Sagittal T1, T2 and STIR imaging. Axial T1 and T2 imaging. CLINICAL INFORMATION: Tiny central protrusion L5-S1 with slight effacement of the ventral thecal sac. The facet arthropathy L4-L5 and L5-S1. COMPARISON: None. FINDINGS: Mild lumbar curve. No acute compression. No high-grade central canal stenosis. Minimal disc bulge L5 -S1. Tiny trace of edema in the RIGHT L5 pedicle/pars with a small amount of sclerosis in this area on the prior CT suggestive of chronic/recurrent incomplete stress fracture with incomplete healing. No ante rolisthesis. L1-L2: Mild facet arthropathy. Spinal canal and foramen are patent. L2-L3: Mild facet arthropathy. Spinal canal and foramen are patent. L3-L4: No significant disc bulging. Mild facet arthropathy. Tiny LEFT foraminal protrusion with mild LEFT foraminal narrowing. L4-L5: Mild annular bulging. Spinal canal is patent. LEFT eccentric disc bulge with mild LEFT foramin al narrowing. RIGHT foramen is patent. Mild facet arthropathy. L5-S1: Shallow central protrusion with slight effacement of the ventral thecal sac. Mild facet arthro lou. Spinal canal and foramen are patent. Visualized pelvic bony structures: Normal. Paravertebral soft tissues: Normal. MR/MR lumbar spine wo con* [id number] IMPRESSION: 1. Mild lumbar curve. No acute compression. No high-grade central canal stenos is. 2. Tiny trace of edema in the RIGHT L5 pedicle/pars with a small amount of scl erosis in this area on the prior CT with slight lucency. Findings suspicious fo r incomplete chronic stress fracture. This only demonstrates minimal edema toda y presumably due to incomplete healing with recurrent microtrauma 3. Tiny LEFT foraminal protrusion L3-4 with mild LEFT foraminal narrowing. 4. LEFT eccentric disc bulging L4-5 with mild LEFT foraminal narrowing. 5. Tiny shallow central protrusion L5-S1 with slight effacement of the ventral thecal sac..
== END 2024-10-14 12:43 | disposition home or self-care (01) ==
PROVIDERS: PCP Nurse Practitioner Family; Visit Provider Family Medicine
DX: M51.360 Other intervertebral disc degeneration, lumbar region with discogenic back pain only (principal); M51.26 Other intervertebral disc displacement, lumbar region; R29.898 Other symptoms and signs involving the musculoskeletal system
CPT/HCPCS: 72148

== ENCOUNTER → 2024-11-24 10:41 | Outpatient (BNVA) | payer MEDICAID, SELFPAY | PROVIDERS: PCP Nurse Practitioner Family; Visit Provider Orthopaedic Surgery | DX: M54.9 Dorsalgia, unspecified (principal); M43.06 Spondylolysis, lumbar region | CPT/HCPCS: 72110 ==

== ENCOUNTER → 2024-12-01 15:16 | Outpatient (BNVA) | payer MEDICAID, SELFPAY | PROVIDERS: PCP Nurse Practitioner Family; Referring Provider Nurse Practitioner Family; Visit Provider Specialist | DX: M43.06 Spondylolysis, lumbar region (principal); E55.9 Vitamin D deficiency, unspecified; E53.8 Deficiency of other specified B group vitamins | CPT/HCPCS: 36415; 80053; 82607; 82746; 84425; 85025; 86160; 86162; 86235; 86255; 86376 ==

== ENCOUNTER 2024-12-02 07:57 | Oncology outpatient (recurring) (ONCR) | payer MEDICAID, SELFPAY ==
--- NOTE | 2024-12-02 08:19 | PC.NURSE ---
Received B1 and B12 injection orders for pt from Dr. Neely. No DX indicated on order. Per Emilie with Dr. Shay office, pt has diagnosis of E51.11 and E53.8
[2024-12-02] MEDS: thiamine 100 mg/mL 2mL SDV IM (08:34)
[2024-12-02] MEDS: cyanocobalamin 1,000 mcg/mL SDV 1000 MCG IM (08:35)
== END 2024-12-02 23:59 | disposition home or self-care (01) ==
LOC: ONCMED 07:59
PROVIDERS: PCP Nurse Practitioner Family; Visit Provider Specialist
DX: E51.11 Dry beriberi (principal); E53.8 Deficiency of other specified B group vitamins; Z79.899 Other long term (current) drug therapy
CPT/HCPCS: 96372; J3411; J3420

== ENCOUNTER 2024-12-29 12:54 | Outpatient (CLI) | payer MEDICAID, SELFPAY ==
--- NOTE | 2024-12-29 12:59 | XR_ITS ---
WS: [id number] Right ankle, 3 views, 12/29/2024 Clinical Data: R ANKLE PAIN Comparison: Right ankle, 06/21/2015 Findings: No fractures or dislocations are seen. There is an orthopedic screw transversely oriented in the distal tibia unchanged. The ankle mortise is normal. The talus and calcaneus are unremarkable. No soft tissue swelling over the medial or lateral malleolus is seen. XR/XR ankle RT min 3V* [id number] Impression: Negative right ankle.
--- NOTE | 2024-12-29 13:05 | XR_ITS ---
WS: [id number] Left ankle, 3 views, 12/29/2024 Clinical Data: left ankle pain Comparison: Left ankle, 09/24/2009. Findings: No fractures or dislocations are seen. The ankle mortise is normal. The talus and calcaneus are unremarkable. No soft tissue swelling over the medial or lateral malleolus is seen. XR/XR ankle LT min 3V* [id number] Impression: Negative left ankle.
== END 2024-12-29 12:55 | disposition home or self-care (01) ==
LOC: RAD 12:56
PROVIDERS: PCP Nurse Practitioner Family; Visit Provider Family Medicine
DX: M25.571 Pain in right ankle and joints of right foot (principal)
CPT/HCPCS: 73610

== ENCOUNTER → 2025-01-06 09:37 | Outpatient (BNVA) | payer MEDICAID, SELFPAY | PROVIDERS: PCP Nurse Practitioner Family; Visit Provider Specialist | DX: G62.89 Other specified polyneuropathies (principal); G61.81 Chronic inflammatory demyelinating polyneuritis | CPT/HCPCS: 80503; 82164; 82945; 84157; 86592; 87070; 87075; 87205; 87327; 89050 ==

== ENCOUNTER 2025-01-27 08:07 | Oncology outpatient (recurring) (ONCR) | payer MEDICAID, SELFPAY ==
[2025-01-23 08:08] VITALS: BP 115/67; PULSE 103; RESP 16; TEMP 36.6; O2SAT 98
[2025-01-23] MEDS: acetaminophen 325 mg Tablet 650 MG PO (08:32)
[2025-01-23] MEDS: diphenhydrAMINE 25 mg Capsule PO (08:32)
[2025-01-23] MEDS: Immune Globulin (Gamunex-C) 20 GM in empty flexible container 1 EACH IV (08:59)
[2025-01-23 09:15] VITALS: BP 105/68; PULSE 74; RESP 16; TEMP 36.4; O2SAT 98
[2025-01-23 09:30] VITALS: BP 101/68; PULSE 78; RESP 16; TEMP 36.3; O2SAT 98
[2025-01-23 10:58] VITALS: BP 102/74; PULSE 74; RESP 16; TEMP 36.6; O2SAT 98
[2025-01-23 15:49] VITALS: BP 102/70; PULSE 74; RESP 16; TEMP 36.6; O2SAT 98
[2025-01-24] MEDS: acetaminophen 325 mg Tablet 650 MG PO (08:35)
[2025-01-24] MEDS: diphenhydrAMINE 25 mg Capsule PO (08:35)
[2025-01-24 08:49] VITALS: BP 110/72; PULSE 71; RESP 18; TEMP 36.8; O2SAT 97
[2025-01-24] MEDS: Immune Globulin (Gamunex-C) 20 GM in empty flexible container 1 EACH IV (08:49)
[2025-01-24 09:04] VITALS: BP 106/69; PULSE 78; RESP 18; TEMP 36.8; O2SAT 98
[2025-01-24 10:12] VITALS: BP 109/69; PULSE 68; RESP 18; TEMP 36.6; O2SAT 96
[2025-01-24 10:40] VITALS: BP 113/66; PULSE 84; RESP 18; TEMP 37; O2SAT 98
[2025-01-24 10:45] VITALS: BP 113/66; PULSE 84; RESP 18; TEMP 37; O2SAT 98
[2025-01-25 08:07] VITALS: BP 110/68; PULSE 88; RESP 18; TEMP 36.2; O2SAT 98
[2025-01-25] MEDS: acetaminophen 325 mg Tablet 650 MG PO (08:14)
[2025-01-25] MEDS: diphenhydrAMINE 50 mg/mL SDV 1mL 25 MG IVP (08:16)
[2025-01-25] MEDS: Immune Globulin (Gamunex-C) 20 GM in empty flexible container 1 EACH IV (09:05)
[2025-01-25 09:06] VITALS: BP 111/66; PULSE 64; RESP 16; TEMP 36.9; O2SAT 98
[2025-01-25 09:20] VITALS: BP 104/64; PULSE 94; RESP 17; TEMP 36.9; O2SAT 97
[2025-01-25 10:25] VITALS: BP 105/59; PULSE 75; RESP 16; TEMP 37.2; O2SAT 97
[2025-01-25 11:01] VITALS: BP 113/76; PULSE 73; RESP 17; TEMP 37.2; O2SAT 98
[2025-01-26] MEDS: acetaminophen 325 mg Tablet 650 MG PO (08:45)
[2025-01-26] MEDS: diphenhydrAMINE 25 mg Capsule PO (08:46)
[2025-01-26] MEDS: Immune Globulin (Gamunex-C) 20 GM in empty flexible container 1 EACH IV (09:05)
[2025-01-26 09:20] VITALS: BP 109/69; PULSE 80; RESP 17; TEMP 37.1; O2SAT 98
[2025-01-26 10:15] VITALS: BP 110/74; PULSE 86; RESP 16; TEMP 36.9; O2SAT 98
[2025-01-26 16:43] VITALS: BP 117/77; PULSE 67; RESP 16; TEMP 37; O2SAT 98
[2025-01-27] MEDS: acetaminophen 325 mg Tablet 650 MG PO (08:38)
[2025-01-27 08:48] VITALS: BP 113/75; PULSE 84; RESP 17; TEMP 36.3; O2SAT 99
[2025-01-27] MEDS: Immune Globulin (Gamunex-C) 20 GM in empty flexible container 1 EACH IV (08:49)
[2025-01-27 09:22] VITALS: BP 105/69; PULSE 96; RESP 18; TEMP 36.5; O2SAT 98
[2025-01-27 10:45] VITALS: BP 122/76; PULSE 80; RESP 17; TEMP 36.5; O2SAT 98
== END 2025-01-27 11:43 | disposition home or self-care (01) ==
PROVIDERS: PCP Nurse Practitioner Family; Visit Provider Specialist
DX: G61.81 Chronic inflammatory demyelinating polyneuritis (principal); Z79.620 Long term (current) use of immunosuppressive biologic
CPT/HCPCS: 96365; 96366; 96413; J1200; J1561; J9999

== ENCOUNTER → 2025-02-21 14:31 | Outpatient (BNVA) | payer MEDICAID, SELFPAY | PROVIDERS: PCP Nurse Practitioner Family; Visit Provider Orthopaedic Surgery | DX: M43.06 Spondylolysis, lumbar region (principal) | CPT/HCPCS: 72110 ==

== ENCOUNTER 2025-03-06 14:35 | Outpatient (RCR) | payer MEDICAID, SELFPAY | END 2025-04-01 23:59 | disposition home or self-care (01) | LOC: SPT 14:35 | PROVIDERS: PCP Family Medicine; Visit Provider Orthopaedic Surgery | DX: M54.9 Dorsalgia, unspecified (principal); G89.29 Other chronic pain | CPT/HCPCS: 97110; 97161 ==

== ENCOUNTER 2025-04-02 05:00 | Outpatient (RCR) | payer MEDICAID, SELFPAY | END 2025-05-01 23:59 | disposition home or self-care (01) | LOC: SPT 05:00 | PROVIDERS: PCP Family Medicine; Visit Provider Orthopaedic Surgery | DX: M54.9 Dorsalgia, unspecified (principal); G89.29 Other chronic pain | CPT/HCPCS: 97110 ==

== ENCOUNTER 2025-04-15 11:11 | Inpatient (IN) | payer MEDICAID, SELFPAY ==
[2025-04-15 11:12] VITALS: BP 107/67; PULSE 49; RESP 14; TEMP 36.4; O2SAT 98; BMI 20.9
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
[2025-04-15 11:25] LABS: Basophils # 0.1 10^3/uL (0.0-0.1); Basophils % 0.5 %; Eosinophils # 0.2 10^3/uL (0.0-0.8); Hematocrit 41.3 % (37-53); Lymphocytes # 6.1 10^3/uL (0.8-4.8); Lymphocytes % 52.2 %; Mean Corpuscular HGB Conc 35.4 g/dL (30-55); Mean Corpuscular Hemoglobin 31.9 pg (27-33); Mean Corpuscular Volume 90.2 fl (82-101); Mean Platelet Volume 9.1 fL (7.4-10.4); Monocytes # 0.7 10^3/uL (0.2-0.9); Monocytes % 6.2 %; Neutrophils % 38.8 %; Nucleated Red Blood Cells % 0 %; Platelet Count 368 10^3/cmm (157-399); Red Blood Count 4.58 10^6/uL (3.85-5.65); Red Cell Distribution Width 14.2 % (12.1-15.1)
[2025-04-15 11:30] VITALS: BP 116/73; PULSE 44; RESP 18; O2SAT 97
[2025-04-15] MEDS: iohexol 350 mg/mL 500 mL Btl (per mL) IV (11:38)
[2025-04-15 11:45] LABS: Acetaminophen < 5.0 ug/mL (10-30); Alanine Aminotransferase 23 U/L (0-41); Albumin Level 4.6 g/dL (3.5-5.2); Alkaline Phosphatase 110 U/L (40-130); Aspartate Amino Transferase 28 U/L (0-40); Blood Urea Nitrogen 3 mg/dL (6-20); Calcium 9.4 mg/dL (8.5-10.5); Carbon Dioxide 22 mmol/L (22-29); Chloride 107 mmol/L (98-107); Creatinine Clr Calc Pharmacy 137.4818; Globulin 3.1 g/dL (1.3-4.6); Glomerular Filtration Rate 134.3 mL/min (90-130); Glucose 113 mg/dL (65-115); Osmolality Calculated 299 mOsm/kg (285-295); Salicylate < 0.3 mg/dL (3-10); Sodium 146 mmol/L (136-145); Total Bilirubin 0.3 mg/dL (0.15-1.2); Total Protein 7.7 g/dL (6.6-8.7)
[2025-04-15 11:47] LABS: Alcohol Level 349 mg/dL (0-10)
--- NOTE | 2025-04-15 12:24 | PC.NURSE ---
96 hour hold rights read to patient in ER 15. Copy of rights left on the patient's stretcher.
[2025-04-15] MEDS: tetanus-dipt-pertussis 0.5 mL SDV IM (12:49)
[2025-04-15 14:07] VITALS: BP 111/76; PULSE 87; RESP 16; TEMP 36.6; O2SAT 100
[2025-04-15 15:09] LABS: Bilirubin Urine Negative (Negative); Blood Urine Negative (Negative); Glucose Urine UA Negative (Normal); Ketones Urine Negative (Negative); Leukocyte Esterase Urine Negative (Negative); Nitrate Urine Negative (Negative); Protein Urine Negative (Negative); Urine Appearance Clear (CLEAR); Urine Color Yellow (Yellow); Urobilinogen Urine 0.2 mg/dL (Negative); pH Urine 7.5 (5-7)
[2025-04-15 15:14] LABS: Add Urine Microscopic? YES; Bacteria Urine None Seen /hpf; Hyaline Casts Urine 0-4 /lpf; RBC Urine 0-2 /hpf (0-2); Squamous Epithelial Cell Urine 0-5 /hpf (0-5); WBC Urine 0-5 /hpf (0-5)
[2025-04-15 15:15] LABS: Specific Gravity, Urine 1.061 (1.005-1.030)
[2025-04-15 15:17] LABS: Amphetamines Screen Urine Negative (Negative); Barbiturates Screen Urine Negative (Negative); Benzodiazepines Screen Urine Negative (Negative); Cocaine Screen Urine Negative (Negative); Opiate Screen Urine Negative (Negative); PCP Screen Urine Negative (Negative); THC Screen Urine Positive (Negative)
[2025-04-15] MEDS: cephALEXin 500 mg Capsule PO ×2 (18:22→19:58)
[2025-04-15] MEDS: levETIRAcetam 500 mg Tablet PO (18:22)
[2025-04-15 19:40] VITALS: BMI 21.3
[2025-04-15] MEDS: hyDROXYzine 25 mg Capsule 50 MG PO (19:57)
[2025-04-15] MEDS: acetaminophen 325 mg Tablet 650 MG PO (19:57)
[2025-04-15] MEDS: trazodone 50 mg Tablet PO (19:58)
[2025-04-15 20:01] VITALS: BP 103/62; PULSE 100; RESP 16; TEMP 36.7; O2SAT 98
[2025-04-16 06:00] VITALS: BP 103/65; PULSE 84; RESP 17; TEMP 36.7; O2SAT 100
[2025-04-16] MEDS: multivitamin therapeutic Tablet 1 TAB PO (07:01)
[2025-04-16] MEDS: folic acid 1 mg Tablet PO (07:01)
[2025-04-16] MEDS: acetaminophen 325 mg Tablet 650 MG PO (07:01)
[2025-04-16] MEDS: thiamine 100 mg Tablet PO (07:02)
[2025-04-16] MEDS: cephALEXin 500 mg Capsule PO ×3 (07:54→20:27)
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
[2025-04-16] MEDS: nicotine 4 mg lozenge MUCOUS MEM ×3 (09:40→20:37)
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
[2025-04-16 14:00] VITALS: BP 116/79; PULSE 67; RESP 18; TEMP 36.6; O2SAT 97
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
[2025-04-16] MEDS: levETIRAcetam 500 mg Tablet PO (17:24)
[2025-04-16 20:00] VITALS: BP 98/62; PULSE 62; RESP 17; TEMP 36.6; O2SAT 99
[2025-04-16] MEDS: hyDROXYzine 25 mg Capsule 50 MG PO (20:27)
[2025-04-16] MEDS: trazodone 50 mg Tablet PO (20:27)
[2025-04-17] VITALS: BP 109/71; PULSE 67; RESP 17; TEMP 37.1; O2SAT 99
[2025-04-17 04:00] VITALS: BP 106/67; PULSE 86; RESP 18; TEMP 36.7; O2SAT 99
[2025-04-17 08:00] VITALS: BP 116/81; PULSE 97; RESP 17; TEMP 36.7; O2SAT 99
[2025-04-17] MEDS: cephALEXin 500 mg Capsule PO ×3 (08:28→21:01)
[2025-04-17] MEDS: multivitamin therapeutic Tablet 1 TAB PO (08:28)
[2025-04-17] MEDS: nicotine 4 mg lozenge MUCOUS MEM ×2 (08:28→21:01)
[2025-04-17] MEDS: thiamine 100 mg Tablet PO (08:28)
[2025-04-17] MEDS: folic acid 1 mg Tablet PO (08:28)
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
[2025-04-17] MEDS: nicotine 21 mg Patch 1 PATCH TRANSDERMA (11:38)
[2025-04-17 12:00] VITALS: BP 119/81; PULSE 83; RESP 17; TEMP 36.9; O2SAT 99
[2025-04-17 16:00] VITALS: BP 106/70; PULSE 72; RESP 17; TEMP 36.9; O2SAT 99
[2025-04-17] MEDS: levETIRAcetam 500 mg Tablet PO (17:19)
[2025-04-17] MEDS: ibuprofen 600 mg Tablet PO (17:20)
[2025-04-17 20:00] VITALS: BP 108/73; PULSE 72; RESP 18; TEMP 36.7; O2SAT 97
[2025-04-17] MEDS: hyDROXYzine 25 mg Capsule 50 MG PO (21:01)
[2025-04-17] MEDS: trazodone 50 mg Tablet PO (21:02)
[2025-04-18] VITALS: BP 101/62; PULSE 60; RESP 18; TEMP 36.3; O2SAT 98
[2025-04-18 04:00] VITALS: BP 100/61; PULSE 66; RESP 18; TEMP 36.9; O2SAT 96
[2025-04-18] MEDS: levETIRAcetam 500 mg Tablet PO ×2 (06:07→17:39)
[2025-04-18] MEDS: folic acid 1 mg Tablet PO (07:27)
[2025-04-18] MEDS: thiamine 100 mg Tablet PO (07:27)
[2025-04-18] MEDS: multivitamin therapeutic Tablet 1 TAB PO (07:27)
[2025-04-18] MEDS: cephALEXin 500 mg Capsule PO ×3 (07:27→20:29)
[2025-04-18] MEDS: hyDROXYzine 25 mg Capsule 50 MG PO ×2 (07:27→20:29)
[2025-04-18] MEDS: nicotine 4 mg lozenge MUCOUS MEM ×6 (07:29→20:05)
[2025-04-18 12:00] VITALS: BP 109/71; PULSE 61; RESP 16; TEMP 37.1; O2SAT 98
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
[2025-04-18 16:00] VITALS: BP 103/71; PULSE 61; RESP 18; TEMP 37; O2SAT 98
[2025-04-18 19:39] VITALS: BP 109/77; PULSE 72; RESP 18; TEMP 36.9; O2SAT 97
[2025-04-18] MEDS: trazodone 50 mg Tablet PO (20:29)
[2025-04-19] VITALS: BP 98/64; PULSE 53; RESP 16; O2SAT 99
[2025-04-19 04:00] VITALS: BP 124/69; PULSE 83; RESP 17; TEMP 36.5; O2SAT 97
[2025-04-19] MEDS: levETIRAcetam 500 mg Tablet PO ×2 (06:20→17:32)
[2025-04-19] MEDS: nicotine 4 mg lozenge MUCOUS MEM ×5 (06:22→21:24)
[2025-04-19 08:00] VITALS: BP 111/79; PULSE 101; RESP 18; TEMP 36.7; O2SAT 97
[2025-04-19] MEDS: thiamine 100 mg Tablet PO (08:32)
[2025-04-19] MEDS: folic acid 1 mg Tablet PO (08:32)
[2025-04-19] MEDS: multivitamin therapeutic Tablet 1 TAB PO (08:32)
[2025-04-19] MEDS: cephALEXin 500 mg Capsule PO ×3 (08:32→21:23)
[2025-04-19] MEDS: ibuprofen 600 mg Tablet PO ×2 (08:33→21:23)
[2025-04-19] MEDS: fluoxetine 20 mg Capsule PO (08:33)
[2025-04-19 12:00] VITALS: BP 116/80; PULSE 88; RESP 16; TEMP 36.8
[2025-04-19] MEDS: hyDROXYzine 25 mg Capsule 50 MG PO ×2 (15:03→21:23)
[2025-04-19 15:24] VITALS: BP 125/83; PULSE 86; RESP 16; TEMP 37.1; O2SAT 97
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
[2025-04-19 19:52] VITALS: BP 121/82; PULSE 92; RESP 17; TEMP 36.9; O2SAT 98
[2025-04-19] MEDS: trazodone 50 mg Tablet PO (21:23)
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
[2025-04-19] MEDS: TRAMadol 50 mg Tablet PO (23:39)
[2025-04-19] MEDS: amoxicillin-clav 875-125 mg Tablet 1 TAB PO (23:47)
[2025-04-19 23:57] LABS: Basophils # 0.1 10^3/uL (0.0-0.1); Basophils % 0.6 %; Eosinophils # 0.5 10^3/uL (0.0-0.8); Eosinophils % 4.2 %; Hematocrit 39.7 % (37-53); Lymphocytes # 3.3 10^3/uL (0.8-4.8); Lymphocytes % 30.6 %; Mean Corpuscular HGB Conc 34.5 g/dL (30-55); Mean Corpuscular Hemoglobin 31.5 pg (27-33); Mean Corpuscular Volume 91.3 fl (82-101); Mean Platelet Volume 8.9 fL (7.4-10.4); Monocytes # 0.8 10^3/uL (0.2-0.9); Monocytes % 6.9 %; Neutrophils # 6.25 10^3/uL (1.8-7.7); Neutrophils % 57.4 %; Nucleated Red Blood Cells % 0 %; Platelet Count 285 10^3/cmm (157-399); Red Blood Count 4.35 10^6/uL (3.85-5.65); Red Cell Distribution Width 13.8 % (12.1-15.1); White Blood Count 10.89 10^3/uL (3.29-11.43)
[2025-04-20 00:13] LABS: Anion Gap 14.4 (5-19); Blood Urea Nitrogen 11 mg/dL (6-20); Calcium 9.7 mg/dL (8.5-10.5); Carbon Dioxide 29 mmol/L (22-29); Chloride 97 mmol/L (98-107); Creatinine Clr Calc Pharmacy 121.1342; Glomerular Filtration Rate 115.1 mL/min (90-130); Glucose 82 mg/dL (65-115); Lactic Sepsis W/Reflex 1.1 mmol/L (0.5-2.2); Osmolality Calculated 280 mOsm/kg (285-295); Potassium 4.4 mmol/L (3.5-5.1); Sodium 136 mmol/L (136-145)
[2025-04-20 06:00] VITALS: BP 110/73; PULSE 72; RESP 16; TEMP 36.4; O2SAT 99
[2025-04-20] MEDS: levETIRAcetam 500 mg Tablet PO ×2 (06:02→17:23)
[2025-04-20] MEDS: nicotine 4 mg lozenge MUCOUS MEM ×8 (06:35→22:29)
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
[2025-04-20] MEDS: doxycycline 100 mg Tablet PO ×2 (07:58→17:23)
[2025-04-20] MEDS: hyDROXYzine 25 mg Capsule 50 MG PO ×2 (07:58→14:10)
[2025-04-20] MEDS: folic acid 1 mg Tablet PO (07:58)
[2025-04-20] MEDS: thiamine 100 mg Tablet PO (07:58)
[2025-04-20] MEDS: multivitamin therapeutic Tablet 1 TAB PO (07:58)
[2025-04-20] MEDS: fluoxetine 20 mg Capsule PO (07:58)
[2025-04-20] MEDS: amoxicillin-clav 875-125 mg Tablet 1 TAB PO ×3 (08:26→17:23)
[2025-04-20] MEDS: ibuprofen 600 mg Tablet PO ×2 (08:39→14:47)
[2025-04-20] MEDS: OLANZapine 5 mg ODT PO ×2 (10:37→22:29)
--- NOTE | 2025-04-20 12:58 | PM.MISC ---
Miscellaneous Note Purpose of Documentation: Update on patient care Note: Left upper quadrant wound I&D was performed. The wound was already dehiscing, mostly containing a retained hematoma. No significant purulence. The hematoma was evacuated the wound was washed out and pack to allow it to heal by secondary intention. Wound care instructions have been given to the patient he will replace packing on a daily basis and cover with dry gauze. He will follow-up with the wound care clinic to ensure adequate wound healing. Follow-up with general surgery as needed. I would recommend that he follows a 10-day course of twice daily Augmentin as outpatient.
--- NOTE | 2025-04-20 13:00 | PM.ACPR ---
Procedure/Consent Time out: Time Out Performed: Yes Consent: Consent for Procedure: Consent obtained from patient, Risks & Benefits reviewed and Agrees to proceed with procedure Procedure Narrative: With the patient in the supine position the left upper quadrant was prepped and draped in usual sterile fashion and a timeout was conducted. Local anesthesia was infiltrated. I then identified suture in the middle of the wound, the wound was already starting to dehisce in the center therefore I only use a scissor to cut the suture and remove the suture and the wound immediately opened up without me needing to cut the skin. This immediately revealed a retained hematoma. A culture swab was taken from inside of the wound. The hematoma was completely evacuated and the wound was washed out with about 100 cc of saline. No residual hematoma or abscess was noted. I then proceeded to pack the wound with quarter inch packing and a sterile dressing was applied. The patient tolerated the procedure well and remained in the Neuropsych Unit in stable condition. Acute Procedures Epistaxis Control: Time out performed: Yes
[2025-04-20 14:00] VITALS: BP 101/66; PULSE 82; RESP 20; TEMP 36.7; O2SAT 100
[2025-04-20] MEDS: lidocaine-epi 1% 20 mL INJ INJECTION (14:08)
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
[2025-04-20] MEDS: acetaminophen 325 mg Tablet 650 MG PO (19:01)
--- NOTE | 2025-04-20 19:38 | PC.NURSE ---
[address] Vee at bedside with a draining a wound abscess, this nurse assisted in handing the doctor equipment and supplies during the procedure. Dr. Vee administered local anesthetic 10ml Lidocaine 1% to area for the procedure. Pt tolerated well, no issues noted.
[2025-04-20 20:12] VITALS: BP 103/77; PULSE 100; RESP 16; TEMP 36.6; O2SAT 100
[2025-04-20] MEDS: TRAMadol 50 mg Tablet PO (22:54)
[2025-04-21] MEDS: levETIRAcetam 500 mg Tablet PO (05:39)
[2025-04-21 05:52] VITALS: BP 122/85; PULSE 71; RESP 18; TEMP 36.4; O2SAT 98
[2025-04-21] MEDS: nicotine 4 mg lozenge MUCOUS MEM ×2 (06:45→12:58)
[2025-04-21] MEDS: TRAMadol 50 mg Tablet PO (06:45)
[2025-04-21] MEDS: amoxicillin-clav 875-125 mg Tablet 1 TAB PO (08:23)
[2025-04-21] MEDS: folic acid 1 mg Tablet PO (08:24)
[2025-04-21] MEDS: fluoxetine 20 mg Capsule PO (08:24)
[2025-04-21] MEDS: thiamine 100 mg Tablet PO (08:24)
[2025-04-21] MEDS: multivitamin therapeutic Tablet 1 TAB PO (08:24)
[2025-04-21] MEDS: doxycycline 100 mg Tablet PO (08:24)
--- NOTE | 2025-04-21 09:20 | P.PN_ITS ---
Subjective 2 Subjective: Patient is under good progression no significant wound issues. Has seen some slight oozing but other than the Explained doing okay Vitals/I&O/Wt Last Vital Signs Temp 97.5 F L 04/21/25 05:52 Pulse 71 04/21/25 05:52 Resp 18 04/21/25 05:52 BP 122/85 04/21/25 05:52 Pulse Ox 98 04/21/25 05:52 O2 Del Method Room Air 04/21/25 05:52 Physical Exam 2 GI: OTHER: Benign abdominal examination left upper quadrant wound is packed packing was removed and replaced the wound appears healthy no evidence of residual infection Data 04/19/25 23:45 04/19/25 23:45 A&P Assessment and plan (1) Wound abscess: Plan Patient showing excellent progression. Packing was replaced today and packing instructions given to the patient. He can follow-up with wound care as outpatient for follow-up of this wound and allow for closure by secondary intention. He can come to the general surgery clinic as needed PDMP PDMP Reviewed: Not Reviewed Attestations 2 Medical Necessity Statement*: Per primary Coding Level of Care Code Acute Code for Chg Fwd Diagnoses Wound abscess
[2025-04-21] MEDS: ibuprofen 600 mg Tablet PO (09:40)
[2025-04-21] MEDS: hyDROXYzine 25 mg Capsule 50 MG PO (10:55)
[2025-04-21 13:08] VITALS: BP 91/62; PULSE 95; RESP 18; TEMP 36.8; O2SAT 98
[2025-04-21 13:11] VITALS: BP 91/62; PULSE 95; RESP 18; TEMP 36.8; O2SAT 98
== END 2025-04-21 14:22 | disposition home or self-care (01) | DRG 605 ==
LOC: ER 12:17 → NP 13:35
PROVIDERS: Internal Medicine; Admitting Provider Psychiatry & Neurology Psychiatry; Emergency Provider Family Medicine; PCP Family Medicine; Visit Provider Psychiatry & Neurology Psychiatry
DX: S31.111A Laceration without foreign body of abdominal wall, left upper quadrant without penetration into peritoneal cavity, initial encounter (principal); F10.288 Alcohol dependence with other alcohol-induced disorder; L02.211 Cutaneous abscess of abdominal wall; X78.1XXA Intentional self-harm by knife, initial encounter; F10.229 Alcohol dependence with intoxication, unspecified; Y90.8 Blood alcohol level of 240 mg/100 ml or more; Z86.59 Personal history of other mental and behavioral disorders; F41.9 Anxiety disorder, unspecified; G62.1 Alcoholic polyneuropathy; F32.A Depression, unspecified; Z81.8 Family history of other mental and behavioral disorders; Z63.0 Problems in relationship with spouse or partner
CPT/HCPCS: 36415; 71046; 74018; 74177; 80048; 80053; 80306; 80307; 81001; 83605; 85025; 87070; 90471; 90715; 97150; 97165; 99285; J9999

== ENCOUNTER 2025-05-08 12:24 | Emergency (ER) | payer MEDICAID, SELFPAY ==
--- NOTE | 2025-05-08 12:28 | CT_ITS ---
WS: [id number] Exam: CT head wo con* [id number] Date/Time of Exam: 05/08/2025 1:17 PM Reason For Exam: seizure DLP: 1041.[address] scans at [facility] use at least one of these dose optimization techniques: automated exposure control; mA and/or kV adjustment per patient size (includes targeted exams where dose is matched to clinical indication); or iterative reconstruction. Comparison 02/10/2024. Technique: Axial contiguous CT images of the brain are obtained. Findings: No sign of acute intracranial bleed or space-occupying mass. The brainstem and cerebellum are unremarkable. No extra-axial fluid collections. The ventricles and basal cisterns are normal in size. The skull is intact. Normal orbits and optic globes. Mastoids and facial sinuses are clear. Soft tissue swelling of the scalp along the RIGHT parietal region. CT/CT head wo con* [id number] IMPRESSION: 1. No acute intracranial finding. Mild soft tissue swelling of the RIGHT scalp.
--- NOTE | 2025-05-08 12:28 | W.ED.SEIZURE ---
HPI - Seizure General: Chief Complaint: Seizure Stated Complaint: seizure Time Seen by Provider: 05/08/25 12:25 Source: patient and EMS Mode of arrival: EMS Limitations: no limitations History of Present Illness: HPI Narrative: 30-year-old male history of seizures in the past along with alcoholism. States he had been drink over the weekend he was at work this morning and had a seizure lasted roughly 30 seconds. States that he had hit his head when he had seized awake alert answering my question properly has a mild headache. Denies any neck pain. Seizure History: Yes Associated symptoms: Deny chest pain, chills or fever(s) Related Data Home Medications ?Medication ?Instructions ?Recorded ?Confirmed gabapentin 400 mg capsule See Rx Instructions .Route .COMPLEX 04/15/25 05/03/25 Previous Rx's ?Medication ?Instructions ?Recorded levetiracetam 500 mg tablet 500 mg PO Q12H #60 tabs 02/10/24 (Keppra) gabapentin 800 mg tablet 800 mg PO TID 90 days #270 tabs 01/04/25 fluoxetine 20 mg capsule 20 mg PO DAILY 30 days #30 caps 04/21/25 Allergies Allergy/AdvReac Type Severity Reaction Status Date / Time No Known Allergies Allergy Verified 05/03/25 10:18 Review of Systems Const: Denies: fever(s), chills, body aches or change in appetite Eyes: Denies: blurry vision ENMT: Denies: throat pain or dental pain Card: Denies: chest pain Resp: Denies: dyspnea GI: Denies: abdominal pain, nausea, vomiting or diarrhea Musc: Denies: neck pain or back pain Skin/Breast: Denies: rash Neuro: Reports: seizure-like activity PFS ED PFSH: Medical History Psychiatric care Alcohol withdrawal Alcohol dependence Family History Mother Diabetes Multiple sclerosis Social History Smoking and tobacco/nicotine status: current every day tobacco/nicotine user Alcohol intake: former Former alcohol use details: 10 days ago Substance/Drug Use: never Physical Exam Const: COMMON NORMALS: no acute distress, patient oriented x3 and healthy appearing HENMT: COMMON NORMALS: normocephalic and atraumatic HEAD & SCALP: normocephalic and atraumatic Eye: COMMON NORMALS: Equal, round and reactive pupils present and EOMs intact bilaterally PUPIL: Yes Equal, round and reactive pupils present Neck/C-Spine: COMMON NORMALS: full ROM and supple CERVICAL SPINE: No Cervical spine tenderness Chest: COMMONS NORMALS: normal inspection of the chest Resp: COMMON NORMALS: normal respiratory effort, No retractions, No use of accessory muscles and clear to auscultation bilaterally AUSCULTATION: clear to auscultation bilaterally Cardio: COMMON NORMALS: regular rhythm and No murmurs present (Cardio) RATE: tachycardic RHYTHM: regular rhythm Extremity: COMMON NORMALS: normal to inspection and full ROM Neuro: COMMON NORMALS: patient oriented x3, moves all extremities and no focal motor deficits Psych: COMMON NORMALS: mental status grossly normal, Normal thought process present and cooperative THOUGHT PROCESS: Normal thought process present Skin: COMMON NORMALS: no rashes or lesions noted and no wounds GENERAL SKIN EXAM: no rashes or lesions noted Course Vital Signs: Vital signs: Vital Signs Pulse Rate 78 05/08/25 12:36 Respiratory Rate 18 05/08/25 12:36 Blood Pressure 125/85 05/08/25 13:02 Pulse Oximetry 97 05/08/25 13:02 Oxygen Delivery Me thod Room Air 05/08/25 12:30 MDM - Seizure MDM Narrative Medical decision making narrative: Patient presents here with generalized seizure he has been well-appearing here no other seizures here head CT is normal he stable for discharge follow-up PCP return if worsening. Lab Data 05/08/25 12:32 05/08/25 12:32 Labs: Radiology Impressions Head CT 05/08/25 12:28 IMPRESSION: 1. No acute intracranial finding. Mild soft tissue swelling of the RIGHT scalp. Laboratory Results WBC 13.08 10^3/uL (3.29-11.43) H 05/08/25 12:32 RBC 4.08 10^6/uL (3.85-5.65) 05/08/25 12:32 Hgb 13.30 g/dL (11.27-16.99) 05/08/25 12:32 Hct 41.1 % (37-53) 05/08/25 12:32 MCV 100.7 fl (82-101) 05/08/25 12:32 MCH 32.6 pg (27-33) 05/08/25 12:32 MCHC 32.4 g/dL (30-55) 05/08/25 12:32 RDW 17.0 % (12.1-15.1) H 05/08/25 12:32 Plt Count 361 10^3/cmm (157-399) 05/08/25 12:32 MPV 8.7 fL (7.4-10.4) 05/08/25 12:32 Neut % (Auto) 62.6 % 05/08/25 12:32 Lymph % (Auto) 29.6 % 05/08/25 12:32 Walsh % (Auto) 6.7 % 05/08/25 12:32 Eos % (Auto) 0.2 % 05/08/25 12:32 Baso % (Auto) 0.5 % 05/08/25 12:32 Neut # (Auto) 8.20 10^3/uL (1.8-7.7) H 05/08/25 12:32 Lymph # (Auto) 3.9 10^3/uL (0.8-4.8) 05/08/25 12:32 Walsh # (Auto) 0.9 10^3/uL (0.2-0.9) 05/08/25 12:32 Eos # (Auto) 0.0 10^3/uL (0.0-0.8) 05/08/25 12:32 Baso # (Auto) 0.1 10^3/uL (0.0-0.1) 05/08/25 12:32 Nucleated RBC % (auto) 0 % 05/08/25 12:32 Nucleated RBCs # 0.0 /100WBC 05/08/25 12:32 Sodium 138 mmol/L (136-145) 05/08/25 12:32 Potassium 3.0 mmol/L (3.5-5.1) L 05/08/25 12:32 Chloride 94 mmol/L (98-107) L 05/08/25 12:32 Carbon Dioxide 14 mmol/L (22-29) L 05/08/25 12:32 Anion Gap 33.0 (5-19) H 05/08/25 12:32 BUN 5 mg/dL (6-20) L 05/08/25 12:32 Creatinine 0.6 mg/dL (0.7-1.2) L 05/08/25 12:32 GFR Calculation 159.3 mL/min (90-130) H 05/08/25 12:32 Glucose 112 mg/dL (65-115) 05/08/25 12:32 Calculated Osmolality 284 mOsm/kg (285-295) L 05/08/25 12:32 Calcium 9.3 mg/dL (8.5-10.5) 05/08/25 12:32 Total Bilirubin 1.2 mg/dL (0.15-1.2) 05/08/25 12:32 AST 37 U/L (0-40) 05/08/25 12:32 ALT 24 U/L (0-41) 05/08/25 12:32 Alkaline Phosphatase 225 U/L (40-130) H 05/08/25 12:32 Total Protein 8.0 g/dL (6.6-8.7) 05/08/25 12:32 Albumin 4.7 g/dL (3.5-5.2) 05/08/25 12:32 Globulin 3.3 g/dL (1.3-4.6) 05/08/25 12:32 All radiology interpretation(s) finalized by discharge Discharge Plan Discharge Patient Disposition: Home Clinical Impression: Generalized seizure Condition: Stable Prescriptions: No Action gabapentin 800 mg tablet 800 mg PO TID 90 Days Qty: 270 3RF levetiracetam [Keppra] 500 mg tablet 500 mg PO Q12H Qty: 60 2RF gabapentin 400 mg capsule See Rx Instructions .ROUTE .COMPLEX Rx Instructions: TAKE 1 CAPSULE BY MOUTH IN THE MORNING 1 AT NOON AND 2 IN THE EVENING fluoxetine 20 mg Capsule 20 mg PO DAILY 30 Days Qty: 30 1RF Discharge Orders: Discharge ED (Routine); Ordered 05/08/25 Ordered By: Maryjane Mejia Referrals: Edwin Robertson MD [Primary Care Provider, [facility]] - 4-7 days Discharge Diet: Advance as tolerated Discharge Activity: Resume usual activity Patient Instructions: Generalized Tonic Clonic Seizures (ED) Print Language: Tajik Coding Level of Care Code ED Pre K Lead Teacher for Charis Fatima
[2025-05-08 12:30] VITALS: BP 125/85; PULSE 107; RESP 16; O2SAT 96; BMI 23.5
[2025-05-08] MEDS: LORazepam 1 MG/0.5 ML injection IVP (12:34)
[2025-05-08 12:36] VITALS: BP 125/85; PULSE 78; RESP 18; O2SAT 94
[2025-05-08 12:38] LABS: Hematocrit 41.1 % (37-53); Hemoglobin 13.30 g/dL (11.27-16.99); Mean Corpuscular HGB Conc 32.4 g/dL (30-55); Mean Corpuscular Hemoglobin 32.6 pg (27-33); Mean Corpuscular Volume 100.7 fl (82-101); Nucleated Red Blood Cells % 0 %; Platelet Count 361 10^3/cmm (157-399); Red Blood Count 4.08 10^6/uL (3.85-5.65); White Blood Count 13.08 10^3/uL (3.29-11.43)
[2025-05-08 12:57] LABS: Alanine Aminotransferase 24 U/L (0-41); Albumin Level 4.7 g/dL (3.5-5.2); Alkaline Phosphatase 225 U/L (40-130); Anion Gap 33.0 (5-19); Aspartate Amino Transferase 37 U/L (0-40); Blood Urea Nitrogen 5 mg/dL (6-20); Calcium 9.3 mg/dL (8.5-10.5); Carbon Dioxide 14 mmol/L (22-29); Chloride 94 mmol/L (98-107); Creatinine Clr Calc Pharmacy 171.8331; Globulin 3.3 g/dL (1.3-4.6); Glucose 112 mg/dL (65-115); Osmolality Calculated 284 mOsm/kg (285-295); Potassium 3.0 mmol/L (3.5-5.1); Sodium 138 mmol/L (136-145); Total Protein 8.0 g/dL (6.6-8.7)
[2025-05-08 13:02] VITALS: BP 125/85; O2SAT 97
[2025-05-08 13:49] VITALS: BP 130/90; PULSE 75; RESP 18; O2SAT 99
== END 2025-05-08 13:50 | disposition home or self-care (01) ==
PROVIDERS: Emergency Provider Emergency Medicine; PCP Family Medicine
DX: R56.00 Simple febrile convulsions (principal); Z72.0 Tobacco use
CPT/HCPCS: 70450; 80053; 85025; 96374; 99285; J2060; J7030

== ENCOUNTER → 2025-06-27 12:22 | Outpatient (BNVA) | payer MEDICAID, SELFPAY | PROVIDERS: PCP Family Medicine; Visit Provider Nurse Practitioner | DX: M25.571 Pain in right ankle and joints of right foot (principal) | CPT/HCPCS: 73610 ==